=== PATIENT | female | born 1960 | race Caucasian/White ===

== ENCOUNTER 2020-06-16 10:34 | Outpatient (CLI) | payer BC, SELFPAY ==
--- NOTE | 2020-06-16 10:45 | MR_ITS ---
WS: [id number] MRA HEAD TECHNIQUE: Axial 3-D TOF images obtained with axial images and axial, sagittal, and coronal 2-D refor matted images. CLINICAL INFORMATION: HEADACHE;UNSPEC VISUAL DISTURBANCE COMPARISON: None. FINDINGS: Basilar artery is patent. Normal vascularity to the STRATIGRAPHER territory bilaterally. Both ICAs are patent a t the skull base. Normal vascularity to the NIKOLAS and MCA territories bilaterally. No evidence of high- grade proximal stenosis or aneurysm. MR/MR angio head wo con [id number] IMPRESSION: Normal intracranial MRA.
--- NOTE | 2020-06-16 10:45 | MR_ITS ---
WS: [id number] MRI HEAD WITHOUT CONTRAST TECHNIQUE: Sagittal T1, T2 axial, T2 axial FLAIR, axial and coronal T1 images, axial susceptibility w eighted imaging, axial diffusion weighted images, and coronal T2 images were obtained. CLINICAL INFORMATION: HEADACHE;UNSPEC VISUAL DISTURBANCE COMPARISON: None. FINDINGS: No evidence of restricted diffusion to suggest acute ischemia. Ventricular system and basal cisterns are patent. Mild periventricular and supratentorial white matter changes consistent with small vessel disease in a patient this age. No significant parenchymal volume loss. Normal posterior fossa. Rowan l vascular flow voids at the skull base. No extra-axial fluid collections. No evidence of mass or mass effect. Mild mucosal thickening in the ethmoid air cells and mastoid air cells. No hemosiderin on the susceptibly weighted images. Normal optic chiasm and pituitary infundibulum. Te mporal lobes and hippocampal formations are normal in appearance. Incidental slightly low-lying cereb ellar tonsils. MR/MR head wo con* [id number] IMPRESSION: 1. No evidence of restricted diffusion to suggest acute ischemia. 2. Mild small vessel changes. No significant parenchymal volume loss. 3. Mild mucosal thickening left greater than right mastoid air cells. 4. Temporal lobes and hippocampal formations are normal in appearance. No asym metric hippocampal atrophy. 5. Slightly low-lying cerebellar tonsils.
== END 2020-06-16 10:35 | disposition home or self-care (01) ==
LOC: RADSHAW 10:43
PROVIDERS: PCP Family Medicine; Visit Provider Family Medicine
DX: R51.9 Headache, unspecified (principal); H53.9 Unspecified visual disturbance
CPT/HCPCS: 70544; 70551

== ENCOUNTER 2020-06-25 10:03 | Outpatient (CLI) | payer BC, SELFPAY ==
--- NOTE | 2020-06-25 10:10 | XR_ITS ---
WS: [id number] FOOT RIGHT TECHNIQUE: 3 views of the right foot CLINICAL INFORMATION: PAIN IN RIGHT FOOT COMPARISON: None. FINDINGS: No evidence of acute fracture or dislocation. Normal tarsal metatarsal alignment. Normal calcaneus. N ormal visualized talar dome. No acute findings. XR/XR foot RT min 3V* [id number] IMPRESSION: Normal right foot.
== END 2020-06-25 10:04 | disposition home or self-care (01) ==
LOC: RADWPI 10:06
PROVIDERS: Family Provider Family Medicine; PCP Family Medicine; Visit Provider Nurse Practitioner
DX: M79.671 Pain in right foot (principal)
CPT/HCPCS: 73630

== ENCOUNTER → 2022-06-07 09:30 | Outpatient (BNVA) | payer OTHER, SELFPAY | PROVIDERS: Family Provider Family Medicine; PCP Family Medicine; Visit Provider Family Medicine | DX: Z00.00 Encounter for general adult medical examination without abnormal findings (principal); E78.5 Hyperlipidemia, unspecified | CPT/HCPCS: 80053; 80061; 84443 ==

== ENCOUNTER → 2022-06-24 08:06 | Outpatient (BNVA) | payer OTHER, SELFPAY | PROVIDERS: Family Provider Family Medicine; PCP Family Medicine; Visit Provider Clinical Nurse Specialist Adult Health | DX: Z01.419 Encounter for gynecological examination (general) (routine) without abnormal findings (principal) | CPT/HCPCS: 87624 ==

== ENCOUNTER 2022-07-08 08:35 | Outpatient (CLI) | payer OTHER, SELFPAY ==
--- NOTE | 2022-07-08 | MM_ITS ---
WS: [id number] Exam: [id number] Date/Time of Exam: 07/08/2022 8:51 AM Reason For Exam: screening VIEWS: MLO and CC views both breasts. 3D digital tomosynthesis is also included in this exam. Comparison made with prior exam of 04/16/2010, 01/25/2012, 04/09/2014, 06/08/2015, 06/24/2016, 07/17/2017,. Findings: There was no sign of mass, architectural distortion or suspicious calcification in either breast. Sta ble appearing nodular densities in both breasts.Scattered fibroglandular densities MM/[id number] Impression: BI-RADS: 2-Benign FOLLOW-UP: 1 Year Follow-up This mammogram was also analyzed by the Computer Aided Detection System R2 Imag e Telemarketing Representative.
--- NOTE | 2022-07-08 08:45 | MM_ITS ---
WS: [id number] Exam: [id number] Date/Time of Exam: 07/08/2022 8:51 AM Reason For Exam: screening VIEWS: MLO and CC views both breasts. 3D digital tomosynthesis is also included in this exam. Comparison made with prior exam of 04/16/2010, 01/25/2012, 04/09/2014, 06/08/2015, 06/24/2016, 07/17/2017,. Findings: There was no sign of mass, architectural distortion or suspicious calcification in either breast. Sta ble appearing nodular densities in both breasts.Scattered fibroglandular densities
== END 2022-07-08 08:36 | disposition home or self-care (01) ==
LOC: RAD 08:36
PROVIDERS: PCP Family Medicine; Visit Provider Family Medicine
DX: Z12.31 Encounter for screening mammogram for malignant neoplasm of breast (principal)
CPT/HCPCS: 77063; 77067

== ENCOUNTER 2022-09-21 05:46 | Day surgery (SDC) | payer OTHER, SELFPAY ==
[2022-09-19 09:53] VITALS: BMI 35.9
[2022-09-21 06:17] VITALS: BP 125/67; PULSE 73; RESP 16; TEMP 36.1; O2SAT 93
[2022-09-21] MEDS: sodium chloride 0.9% 1,000 ML 30 ML IV (06:22)
--- NOTE | 2022-09-21 06:51 | ANES.PREANE2 ---
Pre-Anesthetic Assessment Height/Weight: Height 1.55 m Weight 86.183 kg Temp Pulse Resp BP Pulse Ox O2 Del Method 97 F L 73 16 125/67 93 09/21/22 06:17 09/21/22 06:17 09/21/22 06:17 09/21/22 06:17 09/21/22 06:17 09/21/22 06:17 Preop Diagnosis: screening Operation Date: 09/21/22 07:30 Proposed Procedures p Colonoscopy 06363,Z12.11(Not Applicable) - Jaspal Joy DO Familial anesthetic complications: none Was Beta Chris taken within 24 hours: N/A Was Clonidine taken within 24 hours: N/A Last intake: Intake Last Liquid Date 09/20/22 Last Liquid Time 22:00 Last Solid Date 09/19/22 Last Solid Time 16:00 Social Tobacco and No alcohol 1 pack(s) per day Exam alert, oriented x 3, clear to auscultation bilaterally and regular rate & rhythm Airway Submandibular: within normal limits Cervical ROM: within normal limits Mallampati: Class II Dentition: false Pulmonary None reported CV/HEM None reported None reported Hepatic None reported GI Gastroesophageal Reflux Disease (controlled) and Hiatal Hernia Metabolic Hyperlipidemia and Morbid Obesity [facility] [place] None reported Neuropsych Anxiety Anesthetic Plan ASA status: 2 Anesthesia: MAC Risk of > 500 ml blood loss (7ml/kg in children): No Medications/Allergies Home Medications Medication Instructions Recorded Confirmed Last Taken Type ibuprofen 800 mg tablet 800 mg PO Q8H PRN Pain 06/15/22 09/21/22 09/20/22 History magnesium oxide 400 mg PO DAILY 06/15/22 09/21/22 09/20/22 History alprazolam 0.5 mg tablet 0.5 mg PO TID #90 tabs 06/22/22 09/21/22 09/21/22 Rx escitalopram oxalate 10 mg tablet 10 mg PO DAILY #30 tabs 06/22/22 09/21/22 09/20/22 Rx omeprazole 20 mg capsule,delayed 20 mg PO DAILY #90 caps 06/22/22 09/21/22 09/20/22 Rx release simvastatin 20 mg tablet 20 mg PO DAILY #90 tabs 06/22/22 09/21/22 09/20/22 Rx Allergies Allergy/AdvReac Type Severity Reaction Status Date / Time amoxicillin AdvReac Intermediate vomiting Verified 07/14/22 09:20 Penicillins AdvReac Intermediate hives, Verified 07/14/22 09:20 throat swelling Sulfa (Sulfonamide AdvReac Intermediate anaphylaxis Verified 07/14/22 09:20 Antibiotics) tree nut AdvReac Intermediate throat Verified 07/14/22 09:20 swelling Current Medications Generic Name Dose Route Start Last Admin Trade Name Claritza PRN Reason Stop Dose Admin Sodium Chloride 1,000 mls @ 30 mls/hr 09/21/22 06:15 09/21/22 06:22 Sodium Chloride 0.9% IV 09/22/22 06:14 30 mls/hr .Q24H JP Administration PFSH Anesthesia Medical History (Updated 07/07/22 @ 06:44 by Weston Banegas MD) Foot fracture, left 2018 broke 4 bones in left foot Frequent UTI Generalized anxiety disorder Hyperlipidemia Ocular migraine Ruptured lumbar disc 2011 Surgical History History of arthroscopic surgery of shoulder 2007, both shoulders History of carpal tunnel release of both wrists 1998 Hx of bladder repair surgery 2011, 2011 Family History Mother Cancer breast Family/Other Cancer maternal uncle, colon cancer, age 40 Family/Other Cancer Leukemia, paternal aunt Brother Cancer Lung cancer, smoker/asbestos Social History Smoking and tobacco status: former smoker Quit status (tobacco): has quit using tobacco Former quit date comment: 30-40 pack year history Alcohol intake: never 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
--- NOTE | 2022-09-21 07:55 | PM.HP ---
Providers/Chief Complaint Primary Care Provider: Weston Banegas MD Chief Complaint: screening colonoscopy History of Present Illness Mindy Velez is a 62 year old female who presents for a screening colonoscopy. She had a colonoscopy 15 years ago and no polyps were seen. Her uncle had colon cancer. She denies any abdominal pain, nausea, emesis, diarrhea, constipation, hematochezia and/or melena. Medications/Allergies Home Medications Medication Instructions Recorded Confirmed Last Taken Type ibuprofen 800 mg tablet 800 mg PO Q8H PRN Pain 06/15/22 09/21/22 09/20/22 History magnesium oxide 400 mg PO DAILY 06/15/22 09/21/22 09/20/22 History alprazolam 0.5 mg tablet 0.5 mg PO TID #90 tabs 06/22/22 09/21/22 09/21/22 Rx escitalopram oxalate 10 mg tablet 10 mg PO DAILY #30 tabs 06/22/22 09/21/22 09/20/22 Rx omeprazole 20 mg capsule,delayed 20 mg PO DAILY #90 caps 06/22/22 09/21/22 09/20/22 Rx release simvastatin 20 mg tablet 20 mg PO DAILY #90 tabs 06/22/22 09/21/22 09/20/22 Rx Allergies Allergy/AdvReac Type Severity Reaction Status Date / Time amoxicillin AdvReac Intermediate vomiting Verified 07/14/22 09:20 Penicillins AdvReac Intermediate hives, Verified 07/14/22 09:20 throat swelling Sulfa (Sulfonamide AdvReac Intermediate anaphylaxis Verified 07/14/22 09:20 Antibiotics) tree nut AdvReac Intermediate throat Verified 07/14/22 09:20 swelling PFSH Acute PFSH: Medical History (Updated 09/21/22 @ 07:56 by Jaspal Joy DO) Foot fracture, left 2018 broke 4 bones in left foot Frequent UTI Generalized anxiety disorder Hyperlipidemia Ocular migraine Ruptured lumbar disc 2011 Surgical History History of arthroscopic surgery of shoulder 2007, both shoulders History of carpal tunnel release of both wrists 1998 Hx of bladder repair surgery 2011, 2011 Family History Mother Cancer breast Family/Other Cancer maternal uncle, colon cancer, age 40 Family/Other Cancer Leukemia, paternal aunt Brother Cancer Lung cancer, smoker/asbestos Social History Smoking and tobacco status: former smoker Quit status (tobacco): has quit using tobacco Former quit date comment: 30-40 pack year history Alcohol intake: never 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 The patient is understanding of the risks and wishes to proceed. Attestations Medical Necessity Statement*: Home Coding Level of Care Code Acute Programming Coordinator for Chg Fwd Diagnoses Colon cancer screening Z12.11
[2022-09-21 08:16] VITALS: BP 110/63; PULSE 69; RESP 16; TEMP 36.4; O2SAT 97
--- NOTE | 2022-09-21 08:20 | ANE.PACU2 ---
Inpatient post-anesthesia follow up: Airway intact: Yes Vital signs: Temperature 97.5 F Pulse Rate 69 Respiratory Rate 16 Blood Pressure 110/63 Pulse Oximetry 97 Oxygen Delivery Me thod Room Air Oxygen Flow Rate Fraction of Inspir ed Oxygen Hydration adequate: Yes Nausea and vomiting: No Pain level: 1 Mental status: Baseline
[2022-09-21 08:30] VITALS: BP 116/85; PULSE 70; RESP 16; O2SAT 96
--- NOTE | 2022-09-21 13:32 | ANE.PACU2 ---
Inpatient post-anesthesia follow up: Airway intact: Yes Vital signs: Temperature 97.5 F Pulse Rate 70 Respiratory Rate 16 Blood Pressure 116/85 Pulse Oximetry 96 Oxygen Delivery Me thod Room Air Oxygen Flow Rate Fraction of Inspir ed Oxygen Hydration adequate: Yes Nausea and vomiting: No Pain level: 1 Mental status: Baseline
== END 2022-09-21 08:43 | disposition home or self-care (01) ==
PROVIDERS: PCP Family Medicine; Visit Provider Surgery
PROC: 0DJD8ZZ Inspection of Lower Intestinal Tract, Via Natural or Artificial Opening Endoscopic (ICD-10-PCS; CPT 45378; principal; 2022-09-21 07:30)
DX: Z12.11 Encounter for screening for malignant neoplasm of colon (principal); E78.5 Hyperlipidemia, unspecified; Z87.891 Personal history of nicotine dependence; D12.5 Benign neoplasm of sigmoid colon; K21.9 Gastro-esophageal reflux disease without esophagitis; K44.9 Diaphragmatic hernia without obstruction or gangrene; E66.01 Morbid (severe) obesity due to excess calories; Z68.35 Body mass index [BMI] 35.0-35.9, adult; F41.9 Anxiety disorder, unspecified
CPT/HCPCS: 45380; 45385; 88305; J2704; J7030

== ENCOUNTER → 2022-12-20 08:33 | Outpatient (BNVA) | payer OTHER, SELFPAY | PROVIDERS: PCP Family Medicine; Visit Provider Family Medicine | DX: Z00.00 Encounter for general adult medical examination without abnormal findings (principal); E78.5 Hyperlipidemia, unspecified; F41.9 Anxiety disorder, unspecified; Z01.419 Encounter for gynecological examination (general) (routine) without abnormal findings | CPT/HCPCS: 80053; 80061; 84443 ==

== ENCOUNTER → 2024-04-04 10:00 | Outpatient (BNVA) | payer MEDICARE, OTHER, SELFPAY | PROVIDERS: PCP Family Medicine; Visit Provider Surgery | DX: L73.2 Hidradenitis suppurativa; R22.30 Localized swelling, mass and lump, unspecified upper limb | CPT/HCPCS: 99204; 99214 ==

== ENCOUNTER → 2024-04-05 07:38 | Outpatient (BNVA) | payer MEDICARE, OTHER, SELFPAY | PROVIDERS: PCP Family Medicine; Visit Provider Surgery | DX: L73.2 Hidradenitis suppurativa; R22.2 Localized swelling, mass and lump, trunk | CPT/HCPCS: 99214 ==

== ENCOUNTER → 2024-04-16 14:25 | Outpatient (BNVA) | payer MEDICARE, OTHER, SELFPAY | PROVIDERS: PCP Family Medicine; Visit Provider Clinical Nurse Specialist Adult Health | DX: R30.0 Dysuria (principal); R31.9 Hematuria, unspecified | CPT/HCPCS: 81000; 87086 ==

== ENCOUNTER 2024-04-23 06:44 | Day surgery (SDC) | payer MEDICARE, OTHER, SELFPAY ==
[2024-04-23] VITALS (15 sets, daily range): BP systolic 112–168; BP diastolic 68–96; PULSE 68–91; RESP 12–27; TEMP 36.1–36.4; O2SAT 92–97; BMI 37.4
--- NOTE | 2024-04-23 07:08 | W.PM.OPSUD ---
Surgery/Procedure H&P Update DATE OF PROCEDURE: April 23, 2024 DATE H&P PERFORMED: 04/04/24 H&P UPDATE INFORMATION: I have reviewed H&P completed within last 30 days, I have examined patient prior to procedure and No changes to prior documentation PLANNED PROCEDURE: Operation Date: 04/23/24 08:20 Proposed Procedures p excision of subcutaneous mass of anterior chest 22057, 09246(Not Applicable) - Jaspal Joy DO s Excision Of Pelvic/Groin Mass/Lesion/Cys Excision of Hidradenitis Suppurativa Bilateral Groins(Bilateral) - Jaspal Joy DO
[2024-04-23] MEDS: sodium chloride 0.9% 1,000 ML 30 ML IV (07:11)
[2024-04-23] MEDS: midazolam 1 mg/mL INJ 2 mL 2 MG IVP (07:16)
--- NOTE | 2024-04-23 07:17 | ANES.PREANE2 ---
Pre-Anesthetic Assessment Height/Weight: Height 1.55 m Weight 89.811 kg Temp Pulse Resp BP Pulse Ox O2 Del Method 97.5 F L 74 16 143/68 95 Room Air 04/23/24 06:59 04/23/24 06:59 04/23/24 06:59 04/23/24 06:59 04/23/24 06:59 04/23/24 07:01 Operation Date: 04/23/24 08:20 Proposed Procedures p excision of subcutaneous mass of anterior chest 26576, 94301(Not Applicable) - DO carolyn Petit Excision Of Pelvic/Groin Mass/Lesion/Cys Excision of Hidradenitis Suppurativa Bilateral Groins(Bilateral) - Jaspal Joy DO Familial anesthetic complications: None Was Beta Chris taken within 24 hours: N/A Was Clonidine taken within 24 hours: N/A Last intake: Intake Last Liquid Date 04/22/24 Last Liquid Time 21:00 Last Solid Date 04/22/24 Last Solid Time 15:00 Social Tobacco and No alcohol Exam alert, oriented x 3, clear to auscultation bilaterally and regular rate & rhythm Airway Mallampati: Class II Dentition: other (no teeth) Pulmonary Chronic Obstructive Pulmonary Disease GI Gastroesophageal Reflux Disease Anesthetic Plan ASA status: 3 Anesthesia: General Risk of > 500 ml blood loss (7ml/kg in children): No Medications/Allergies Home Medications Medication Instructions Recorded Confirmed Last Taken Type ibuprofen 800 mg tablet 800 mg PO Q8H PRN Pain 06/15/22 04/22/24 04/15/24 History prenat.vits,westley,iif-eghq-iajme 1 tab PO DAILY 10/05/22 04/22/24 04/22/24 History alprazolam 0.5 mg tablet 0.5 mg PO TID #90 tabs 12/20/23 04/23/24 04/23/24 Rx albuterol sulfate 90 mcg/actuation 2 puff inhalation Q6H PRN 12/26/23 04/22/24 Unknown Rx aerosol inhaler (Ventolin HFA) shortness of breath or wheezing #8.5 grams omeprazole 20 mg capsule,delayed 20 mg PO DAILY #90 caps 12/26/23 04/22/24 04/22/24 Rx release simvastatin 20 mg tablet 20 mg PO DAILY #90 tabs 12/26/23 04/23/24 04/22/24 Rx amoxicillin 875 mg-potassium 1 tab PO BID 3 weeks #42 tabs 04/04/24 04/22/24 04/22/24 Rx clavulanate 125 mg tablet epinephrine 0.1 mg/0.1 mL 0.1 ml IM ONCE #2 ea 04/04/24 04/22/24 Unknown Rx injection, auto-injector fluconazole 100 mg tablet 100 mg PO Q72H #5 tabs 04/16/24 04/22/24 04/22/24 Rx (Diflucan) nystatin 100,000 unit/gram topical 1 applic topical BID #30 grams 04/16/24 04/22/24 04/22/24 Rx powder magnesium 200 mg tablet 400 mg PO DAILY 04/23/24 04/23/24 04/22/24 History Allergies Allergy/AdvReac Type Severity Reaction Status Date / Time latex Allergy ALGY-Bliste Verified 04/23/24 06:52 r Penicillins AdvReac Intermediate hives, Verified 04/05/24 07:46 throat swelling Sulfa (Sulfonamide AdvReac Intermediate anaphylaxis Verified 04/23/24 06:52 Antibiotics) tree nut AdvReac Intermediate throat Verified 04/23/24 06:52 swelling Current Medications Generic Name Dose Route Start Last Admin Trade Name Freq PRN Reason Stop Dose Admin Sodium Chloride 1,000 mls @ 30 mls/hr 04/23/24 07:00 04/23/24 07:11 Sodium Chloride 0.9% IV 04/24/24 06:59 30 mls/hr .Q24H JP Administration PFSH Anesthesia Medical History Smoker Foot fracture, left 2018 broke 4 bones in left foot Ruptured lumbar disc 2011 Ocular migraine Frequent UTI Generalized anxiety disorder Hyperlipidemia Surgical History Hx of bladder repair surgery 2011, 2011 History of arthroscopic surgery of shoulder 2007, both shoulders History of carpal tunnel release of both wrists 1998 Family History Mother Cancer breast Family/Other Cancer maternal uncle, colon cancer, age 40 Family/Other Cancer Leukemia, paternal aunt Brother Cancer Lung cancer, smoker/asbestos Social History Smoking and tobacco/nicotine status: current every day tobacco/nicotine user Quit status (tobacco/nicotine): has quit using Former quit date comment: 30-40 pack year history Alcohol intake: never Substance/Drug Use: never 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
[2024-04-23] MEDS: ceFAZolin 2,000 mg SDV 2000 MG IVP (07:28)
[2024-04-23] MEDS: lidocaine-epi 1% 20 mL INJ INJECTION ×2 (08:01→08:15)
--- NOTE | 2024-04-23 09:15 | PM.OP ---
Operative Report Date of procedure: April 23, 2024 Pre-op diagnosis: Cutaneous mass of the chest Hidradenitis suppurativa bilateral groins Procedure done: Excision of subcutaneous mass of chest Excision of skin and subcutaneous tissue right groin Excision of skin and subcutaneous tissue left groin Specimens removed/disposition: Excision of subcutaneous mass of chest Excision of skin and subcutaneous tissue right groin Excision of skin and subcutaneous tissue left groin Surgeon: Jaspal Joy DO Anesthesia: General and Local Estimated blood loss (mL): 5 Complications: None apparent Brief History: This is a very pleasant 64-year-old female who came to my office with enlarging subcutaneous mass of her anterior chest. This has opened and drained at least a couple times in her life. She also suffers from hidradenitis suppurativa in her bilateral groins She desired excision for many many years. She often will get acute infections in both groins. She did desired excision of all 3 areas. She was treated with antibiotics prior to surgery. The risks and benefits of the procedures were explained and documented. Procedure: Placed on the OR table in the supine position. The anterior chest and bilateral groins were inspected prepped and draped in usual sterile fashion. General tracheal ovation was achieved of department anesthesia. A time was performed. All Were in Agreement. We Began on the Anterior Chest Lesion. There was a circumscribed subcutaneous mass in the middle of her anterior chest. Just adjacent to this was a skin nevus that was flesh-colored and raised. I included this in the excision. 1% lidocaine with epinephrine was used to anesthetize the area. A 15 blade scalpel was used to make an elliptical excision over both the subcutaneous mass and the nevus. An excision measuring 4 centimeters by 2.3 cm was performed. Dissection was carried down 2.3 cm with electrocautery. The cystic appearing subcutaneous mass was excised en bloc. Hemostasis was controlled with electrocautery. Dermis was then approximated with 3-0 Vicryl in an interrupted fashion. Skin was closed with 4-0 Monocryl in a running subcuticular fashion. Dermabond was applied. I then took my attention to the bilateral groins. Starting in the left groin, 1% lidocaine with epinephrine was used to localize the area. Patient had great response to antibiotics did not have any acute infection in either groin. A 10 blade scalpel was used to make an elliptical excision measuring 20 cm x 4.5 cm. Electrocautery was then used to cut through the dermis and excise through the subcutaneous tissue down to a depth of 1 cm. Electrocautery was used for hemostasis. Specimen was passed off. Dermis was approximated with 3-0 Vicryl in interrupted fashion. Skin was closed with simple interrupted 3-0 and 4-0 nylon. Attention was then brought to to the right groin, 1% lidocaine with epinephrine was used to localize the area. Patient had great response to antibiotics did not have any acute infection in either groin. A 10 blade scalpel was used to make an elliptical excision measuring 20 cm x 4.5 cm. Electrocautery was then used to cut through the dermis and excise through the subcutaneous tissue down to a depth of 1 cm. Electrocautery was used for hemostasis. Specimen was passed off. Dermis was approximated with 3-0 Vicryl in interrupted fashion. Skin was closed with simple interrupted 3-0 and 4-0 nylon. Sterile bandages were applied to the groins. Patient tolerated procedure well and was wheeled to the postop anesthesia care unit in good condition.
[2024-04-23] MEDS: fentaNYL 50 mcg/mL INJ 2mL IVP ×2 (09:45→10:01)
[2024-04-23] MEDS: oxyCODONE-APAP 10-325 mg Tablet 1 TAB PO (10:46)
--- NOTE | 2024-04-23 11:05 | ANE.PACU2 ---
Inpatient post-anesthesia follow up: Airway intact: Yes Vital signs: Temperature 97.5 F Pulse Rate 72 Respiratory Rate 17 Blood Pressure 112/72 Pulse Oximetry 95 Oxygen Delivery Me thod Room Air Oxygen Flow Rate 8 Fraction of Inspir ed Oxygen Hydration adequate: Yes Nausea and vomiting: No Pain level: 1 Mental status: Baseline
== END 2024-04-23 11:04 | disposition home or self-care (01) ==
PROVIDERS: PCP Family Medicine; Visit Provider Surgery
PROC: (CPT 11404; principal; 2024-04-23 08:10)
PROC: (CPT 11404; 2024-04-23 08:10)
DX: L72.0 Epidermal cyst (principal); L73.2 Hidradenitis suppurativa; J44.9 Chronic obstructive pulmonary disease, unspecified; K21.9 Gastro-esophageal reflux disease without esophagitis; F17.200 Nicotine dependence, unspecified, uncomplicated; E78.5 Hyperlipidemia, unspecified
CPT/HCPCS: 11404; 11462; 12032; 88307; J0690; J1100; J2250; J2405; J2704; J3010; J3490; J7030

== ENCOUNTER → 2024-05-06 09:01 | Outpatient (BNVA) | payer MEDICARE, OTHER, SELFPAY | PROVIDERS: PCP Family Medicine; Visit Provider Surgery | DX: L73.2 Hidradenitis suppurativa (principal) | CPT/HCPCS: 99214 ==

== ENCOUNTER → 2024-05-10 08:25 | Outpatient (BNVA) | payer MEDICARE, OTHER, SELFPAY | PROVIDERS: PCP Family Medicine; Visit Provider Surgery | DX: L73.2 Hidradenitis suppurativa (principal) | CPT/HCPCS: 99214 ==

== ENCOUNTER → 2024-06-27 08:10 | Outpatient (BNVA) | payer MEDICARE, OTHER, SELFPAY | PROVIDERS: PCP Family Medicine; Visit Provider Family Medicine | DX: I50.20 Unspecified systolic (congestive) heart failure (principal); F41.9 Anxiety disorder, unspecified; E78.5 Hyperlipidemia, unspecified; R06.00 Dyspnea, unspecified; L73.2 Hidradenitis suppurativa | CPT/HCPCS: 80053; 80061 ==

== ENCOUNTER 2024-07-20 15:00 | Inpatient (IN) | payer MEDICARE, OTHER, SELFPAY ==
[2024-07-20 15:38] VITALS: BP 136/81; PULSE 72; RESP 18; TEMP 36.4; O2SAT 97
[2024-07-20 15:53] VITALS: BP 110/86; PULSE 85; O2SAT 96
[2024-07-20 16:00] LABS: Bilirubin Urine Negative (Negative); Blood Urine Trace (Negative); Glucose Urine UA Negative (Normal); Ketones Urine Negative (Negative); Leukocyte Esterase Urine Negative (Negative); Nitrate Urine Negative (Negative); Protein Urine Negative (Negative); Specific Gravity, Urine 1.008 (1.005-1.030); Urine Appearance Clear (CLEAR); Urine Color Yellow (Yellow); Urobilinogen Urine 0.2 mg/dL (Negative); pH Urine 5.5 (5-7)
[2024-07-20 16:05] LABS: Bacteria Urine None Seen /hpf; Hyaline Casts Urine 0-4 /lpf; RBC Urine 0-2 /hpf (0-2); Squamous Epithelial Cell Urine 0-5 /hpf (0-5); WBC Urine 0-5 /hpf (0-5)
[2024-07-20 16:08] LABS: Basophils # 0.1 10^3/uL (0.0-0.1); Basophils % 0.4 %; Eosinophils # 0.2 10^3/uL (0.0-0.8); Eosinophils % 1.2 %; Hematocrit 43.1 % (36-47); Lymphocytes # 2.8 10^3/uL (0.8-4.8); Mean Corpuscular HGB Conc 32.5 g/dL (30-55); Mean Corpuscular Hemoglobin 30.2 pg (27-33); Mean Corpuscular Volume 93.1 fl (85-98); Mean Platelet Volume 10.1 fL (7.4-10.4); Monocytes % 7.8 %; Neutrophils # 8.84 10^3/uL (1.8-7.7); Neutrophils % 68.3 %; Nucleated Red Blood Cells % 0 %; Platelet Count 334 10^3/cmm (157-399); Red Blood Count 4.63 10^6/uL (3.85-5.65); Red Cell Distribution Width 13.2 % (12.1-15.1); White Blood Count 12.93 10^3/uL (3.29-11.43)
[2024-07-20 16:27] LABS: Alanine Aminotransferase 17 U/L (0-33); Albumin Level 4.3 g/dL (3.5-5.2); Alkaline Phosphatase 105 U/L (35-105); Anion Gap 16.2 (5-19); Aspartate Amino Transferase 15 U/L (0-32); Blood Urea Nitrogen 13 mg/dL (8-23); Calcium 9.3 mg/dL (8.5-10.5); Carbon Dioxide 25 mmol/L (22-29); Chloride 101 mmol/L (98-107); Creatinine Clr Calc Pharmacy 70.2977; Globulin 2.2 g/dL (1.3-4.6); Glucose 112 mg/dL (65-115); Lipase 15 U/L (13-60); Osmolality Calculated 287 mOsm/kg (285-295); Potassium 4.2 mmol/L (3.5-5.1); Sodium 138 mmol/L (136-145); Total Bilirubin 0.2 mg/dL (0.15-1.2); Total Protein 6.5 g/dL (6.6-8.7)
[2024-07-20 16:28] LABS: Lactic Sepsis W/Reflex 1.3 mmol/L (0.5-2.2)
--- NOTE | 2024-07-20 16:29 | CTR_ITS ---
PROCEDURE INFORMATION: Exam: CT Abdomen And Pelvis With Contrast Exam date and time: 07/20/2024 5:18 PM Age: 64 years old Clinical indication: Abdominal pain; Localized; Right lower quadrant (rlq); Additional info: Rlq abdominal pain TECHNIQUE: Imaging protocol: Computed tomography of the abdomen and pelvis with contrast. Radiation optimization: All CT scans at this facility use at least one of these dose optimization techniques: automated exposure control; mA and/or kV adjustment per patient size (includes targeted exams where dose is matched to clinical indication); or iterative reconstruction. Contrast material: OMNI 350; Contrast volume: 100 ml; Contrast route: INTRAVENOUS (IV); COMPARISON: MR lumbar spine wo con* [id number] 05/10/2018 7:14 AM RADIATION DOSE METRICS: Total DLP (mGy-cm): 785.23 FINDINGS: Lungs: Lung bases are clear. Liver: Liver is enlarged measuring 17 cm. Diffuse decrease in hepatic parenchymal density, consistent with fatty infiltration. The liver is otherwise unremarkable. Gallbladder and biliary ducts: Gallbladder is normal. There is no evidence of biliary ductal dilation. Pancreas: The pancreas is normal. Spleen: The spleen is normal. Adrenal glands: Adrenal glands are normal. Kidneys and ureters: The kidneys are normal. No hydroureter. Stomach and bowel: No bowel obstruction or significant bowel wall thickening. Mild constipation. The stomach is normal. The duodenum is unremarkable. Appendix: Mild diffuse distension of the appendix, up to 1 cm, with surrounding inflammation. Intraperitoneal space: There is no evidence of free intraperitoneal or pelvic fluid. No intraperitoneal fluid collections. There is no free intraperitoneal air. Vasculature: There are numerous benign phleboliths in the pelvis. Portal venous system is patent. Mild atherosclerotic calcification of the arterial vasculature. No aortic aneurysms. Lymph nodes: There is no evidence of lymphadenopathy. Urinary bladder: Bladder is decompressed and difficult to evaluate. Reproductive: Reproductive organs are unremarkable as visualized. Bones/joints: Mild multilevel degenerative changes of the spine. No acute fracture, dislocation, or aggressive osseous lesion. Soft tissues: Fat containing umbilical hernia. Right buttock calcified granulomas are benign. No acute body wall soft tissue findings. CT/CT abdomen pelvis w con* [id number] IMPRESSION: Mild acute uncomplicated appendicitis.
--- NOTE | 2024-07-20 16:30 | ED_ITS ---
HPI - Abdominal Pain 2 General: Chief Complaint: Abdominal Pain Stated Complaint: abd pain, back pain Time Seen by Provider: 07/20/24 15:45 History of Present Illness: 64-year-old female with a history of brenda dder sling, no recent inguinal lymph node biopsy tobacco dependence, migraines, anxiety and hyperlipidemia who presents to the emergency room with low back pain and right lower quadrant abdominal pain. This been going on for couple of days she said. No nausea or vomiting. No fevers. She says she has had chills regularly and has felt cold. No chest pain. No shortness of breath. No altered mental status. No focal motor deficits. Related Data Home Medications Medication Instructions Recorded Confirmed ibuprofen 800 mg tablet 800 mg PO Q8H PRN Pain 06/15/22 07/20/24 magnesium 200 mg tablet 400 mg PO DAILY 04/23/24 07/20/24 vits,calcium 21-iron fum 1 tab PO DAILY 07/20/24 07/20/24 14 mg iron-folic acid 400 mcg tablet ( Complete) Previous Rx's Medication Instructions Recorded albuterol sulfate 90 mcg/actuation 2 puff inhalation Q6H PRN 12/26/23 aerosol inhaler (Ventolin HFA) shortness of breath or wheezing #8.5 grams epinephrine 0.1 mg/0.1 mL 0.1 ml IM ONCE #2 ea 04/04/24 injection, auto-injector alprazolam 0.5 mg tablet 0.5 mg PO TID #90 tabs 06/24/24 omeprazole 20 mg capsule,delayed 20 mg PO DAILY #90 caps 06/26/24 release simvastatin 20 mg tablet 20 mg PO DAILY #90 tabs 06/26/24 Allergies Allergy/AdvReac Type Severity Reaction Status Date / Time latex Allergy ALGY-Bliste Verified 07/20/24 15:41 r Penicillins AdvReac Intermediate hives, Verified 07/20/24 15:41 throat swelling Sulfa (Sulfonamide AdvReac Intermediate anaphylaxis Verified 07/20/24 15:41 Antibiotics) tree nut AdvReac Intermediate throat Verified 07/20/24 15:41 swelling Review of Systems 2 Narrative: Constitutional symptoms: Negative except as documented in HPI. Skin symptoms: Negative except as documented in HPI. Eye symptoms: Negative except as documented in HPI. ENMT symptoms: Negative except as documented in HPI. Respiratory symptoms: Negative except as documented in HPI. Cardiovascular symptoms: Negative except as documented in HPI. Gastrointestinal symptoms: Negative except as documented in HPI. Genitourinary symptoms: Negative except as documented in HPI. Musculoskeletal symptoms: Negative except as documented in HPI. Neurologic symptoms: Negative except as documented in HPI. Psychiatric symptoms: Negative except as documented in HPI. Endocrine symptoms: Negative except as documented in HPI. PFSH ED 2 PFSH: Medical History Smoker Foot fracture, left 2018 broke 4 bones in left foot Ruptured lumbar disc 2011 Ocular migraine Frequent UTI Generalized anxiety disorder Hyperlipidemia Surgical History Hx of excision of mass Dr Joy- 04/23/24 Excision of subcutaneous mass of chest Excision of skin and subcutaneous tissue right groin Excision of skin and subcutaneous tissue left groin Hx of bladder repair surgery 2011, 2011 History of arthroscopic surgery of shoulder 2008, both shoulders History of carpal tunnel release of both wrists 1998 Family History Mother Cancer breast Family/Other Cancer maternal uncle, colon cancer, age 40 Family/Other Cancer Leukemia, paternal aunt Brother Cancer Lung cancer, smoker/asbestos Social History Smoking and tobacco/nicotine status: current every day tobacco/nicotine user Quit status (tobacco/nicotine): has quit using Former quit date comment: 30-40 pack year history Alcohol intake: never Substance/Drug Use: never 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 Skin: Warm, dry. Head: Normocephalic, atraumatic. Neck: Supple, trachea midline. Eye: Extraocular movements are intact. Ears, nose, mouth and throat: mucosa moist. Cardiovascular: Regular, Normal peripheral perfusion. Respiratory: Lungs are clear to auscultation, respirations are non-labored, breath sounds are equal, Symmetrical chest wall expansion. Gastrointestinal: Soft, bilateral low back pain and right lower quadrant abdominal pain, Non distended Musculoskeletal: Normal ROM, no deformity. Neurological: Alert and oriented, No focal neurological deficit observed. Psychiatric: Cooperative, appropriate mood & affect. Course 2 Vital Signs: Vital signs: Vital Signs Temperature 97.5 F L 07/20/24 15:38 Pulse Rate 74 07/20/24 18:20 Respiratory Rate 18 07/20/24 15:38 Blood Pressure 132/81 07/20/24 18:20 Pulse Oximetry 94 07/20/24 18:20 Oxygen Delivery Me thod Room Air 07/20/24 18:20 MDM - Abdominal Pain Medical Decision Making Medical decision making: Differential diagnosis for this patient with right lower quadrant abdominal pain including but not limited to and based on the above HPI, review of systems and physical exam: Ureterolithiasis. Urinary tract infection. Appendicitis. colitis. small bowel obstruction. Crohn's flare. Pancreatitis. Cholelithiasis or cholecystitis. Hepatitis. Diverticulitis. Constipation. ovarian cyst. ovarian torsion Workup: Orders were placed to evaluate differential diagnosis based on the above differential, HPI and exam: Lab Review: Laboratory results were reviewed and interpreted by myself the emergency room physician. Mild leukocytosis with a white count of 12. No anemia. Hemoglobin 14. BUN and creatinine are normal at 13 and 0.7. Urinalysis is negative for infection or blood. CT of the abdomen pelvis shows a mild acute uncomplicated appendicitis. This was reviewed and interpreted by myself the emergency room physician. I also reviewed the radiology report. I reviewed the patient's medical record Reexamination: Patient remained stable. No increased work of breathing. No altered mental status. No focal motor deficits. Still with some right lower quadrant abdominal pain. Not severe. Patient is asking to go outside to smoke Consultation: I spoke with Dr. Justice who is on-call for psychiatry who is admitting the patient. Assessment and plan: Acute appendicitis ?Patient has a penicillin allergy so she has been given Cipro and Flagyl. -I discussed the patient with the hospitalist on-call who is admitting the patient. - Discussed findings and plan with patient. Answered any questions. - All laboratory values were reviewed and interpreted personally by myself, the ER physician - All imaging was reviewed and interpreted personally by myself, the ER physician. - Evaluation and treatment of this problem were appropriate in the emergency setting Lab Data 07/20/24 15:59 07/20/24 15:59 Labs/Radiology: Radiology Impressions Abdomen/Pelvis CT 07/20/24 16:29 IMPRESSION: Mild acute uncomplicated appendicitis. Laboratory Results WBC 12.93 10^3/uL (3.29-11.43) H 07/20/24 15:59 RBC 4.63 10^6/uL (3.85-5.65) 07/20/24 15:59 Hgb 14.00 g/dL (11.27-16.99) 07/20/24 15:59 Hct 43.1 % (36-47) 07/20/24 15:59 MCV 93.1 fl (85-98) 07/20/24 15:59 MCH 30.2 pg (27-33) 07/20/24 15:59 MCHC 32.5 g/dL (30-55) 07/20/24 15:59 RDW 13.2 % (12.1-15.1) 07/20/24 15:59 Plt Count 334 10^3/cmm (157-399) 07/20/24 15:59 MPV 10.1 fL (7.4-10.4) 07/20/24 15:59 Neut % (Auto) 68.3 % 07/20/24 15:59 Lymph % (Auto) 22.0 % 07/20/24 15:59 [place] % (Auto) 7.8 % 07/20/24 15:59 Eos % (Auto) 1.2 % 07/20/24 15:59 Baso % (Auto) 0.4 % 07/20/24 15:59 Neut # (Auto) 8.84 10^3/uL (1.8-7.7) H 07/20/24 15:59 Lymph # (Auto) 2.8 10^3/uL (0.8-4.8) 07/20/24 15:59 [place] # (Auto) 1.0 10^3/uL (0.2-0.9) H 07/20/24 15:59 Eos # (Auto) 0.2 10^3/uL (0.0-0.8) 07/20/24 15:59 Baso # (Auto) 0.1 10^3/uL (0.0-0.1) 07/20/24 15:59 Nucleated RBC % (auto) 0 % 07/20/24 15:59 Nucleated RBCs # 0.0 /100WBC 07/20/24 15:59 Sodium 138 mmol/L (136-145) 07/20/24 15:59 Potassium 4.2 mmol/L (3.5-5.1) 07/20/24 15:59 Chloride 101 mmol/L (98-107) 07/20/24 15:59 Carbon Dioxide 25 mmol/L (22-29) 07/20/24 15:59 Anion Gap 16.2 (5-19) 07/20/24 15:59 BUN 13 mg/dL (8-23) 07/20/24 15:59 Creatinine 0.7 mg/dL (0.5-0.9) 07/20/24 15:59 GFR Calculation 84.0 mL/min (90-130) L 07/20/24 15:59 Glucose 112 mg/dL (65-115) 07/20/24 15:59 Calculated Osmolality 287 mOsm/kg (285-295) 07/20/24 15:59 Lactic Acid 1.3 mmol/L (0.5-2.2) 07/20/24 15:59 Calcium 9.3 mg/dL (8.5-10.5) 07/20/24 15:59 Total Bilirubin 0.2 mg/dL (0.15-1.2) 07/20/24 15:59 AST 15 U/L (0-32) 07/20/24 15:59 ALT 17 U/L (0-33) 07/20/24 15:59 Alkaline Phosphatase 105 U/L (35-105) 07/20/24 15:59 Total Protein 6.5 g/dL (6.6-8.7) L 07/20/24 15:59 Albumin 4.3 g/dL (3.5-5.2) 07/20/24 15:59 Globulin 2.2 g/dL (1.3-4.6) 07/20/24 15:59 Lipase 15 U/L (13-60) 07/20/24 15:59 Urine Color Yellow (Yellow) 07/20/24 15:55 Urine Appearance Clear (CLEAR) 07/20/24 15:55 Urine pH 5.5 (5-7) 07/20/24 15:55 Ur Specific [place] 1.008 (1.005-1.030) 07/20/24 15:55 Urine Protein Negative (Negative) 07/20/24 15:55 Urine Glucose (UA) Negative (Normal) 07/20/24 15:55 Urine Ketones Negative (Negative) 07/20/24 15:55 Urine Blood Trace (Negative) A 07/20/24 15:55 Urine Nitrate Negative (Negative) 07/20/24 15:55 Urine Bilirubin Negative (Negative) 07/20/24 15:55 Urine Urobilinogen 0.2 mg/dL (Negative) 07/20/24 15:55 Ur Leukocyte Esterase Negative (Negative) 07/20/24 15:55 Urine RBC 0-2 /hpf (0-2) 07/20/24 15:55 Urine WBC 0-5 /hpf (0-5) 07/20/24 15:55 Ur Squamous Epith Cells 0-5 /hpf (0-5) 07/20/24 15:55 Amorphous Sediment Not Reportable 07/20/24 15:55 Urine Bacteria None seen /hpf (NONE) 07/20/24 15:55 Hyaline Casts 0-4 /lpf H 07/20/24 15:55 All radiology interpretation(s) finalized by discharge Discharge Plan Discharge Patient Disposition: Admitted As Inpatient Clinical Impression: Acute appendicitis Condition: Stable Coding Level of Care Code ED Tutorial Laboratory Supervisor for Randy Mo
[2024-07-20] MEDS: iohexol 350 mg/mL 500 mL Btl (per mL) IV (17:20)
[2024-07-20 18:20] VITALS: BP 132/81; PULSE 74; O2SAT 94
[2024-07-20 20:02] VITALS: BP 145/78; PULSE 85; O2SAT 97
[2024-07-20 20:10] VITALS: BMI 36.5
[2024-07-20 20:53] VITALS: RESP 18; O2SAT 97
[2024-07-20] MEDS: morphine 4 mg/mL SDV 1 mL IVP (20:53)
[2024-07-20] MEDS: sodium chloride 0.9% 1,000 ML 75 ML IV (20:53)
[2024-07-20] MEDS: ciprofloxacin 400 MG/200 ML PREMIX 200 MG IV (21:21)
[2024-07-21] VITALS (12 sets, daily range): BP systolic 100–139; BP diastolic 56–72; PULSE 56–81; RESP 15–18; TEMP 36.4–36.7; O2SAT 93–100
[2024-07-21] MEDS: metroNIDAZOLE IV 500 MG/100 ML PREMIX 100 MG IV ×2 (05:37→13:29)
[2024-07-21] MEDS: ciprofloxacin 400 MG/200 ML PREMIX 200 MG IV (06:38)
--- NOTE | 2024-07-21 10:00 | P.ANESASSM_ITS ---
Pre-Anesthetic Assessment Height/Weight: Height 1.55 m Weight 87.815 kg Temp Pulse Resp BP Pulse Ox O2 Del Method 97.5 F L 59 L 18 117/60 94 Room Air 07/21/24 08:51 07/21/24 08:51 07/21/24 08:51 07/21/24 08:51 07/21/24 08:51 07/21/24 08:51 Operation Date: 07/21/24 09:35 Proposed Procedures p Laparoscopic Appendectomy(Bilateral) - Faisal Justice MD Familial anesthetic complications: none Was Beta Chris taken within 24 hours: N/A Was Clonidine taken within 24 hours: N/A Last intake: Intake Last Liquid Date 07/20/24 Last Liquid Time 22:00 Last Solid Date 07/20/24 Last Solid Time 19:00 Social No alcohol and No tobacco Exam alert, oriented x 3, clear to auscultation bilaterally and regular rate & rhythm Airway Mallampati: Class II Dentition: other (none) GI Gastroesophageal Reflux Disease Metabolic Hyperlipidemia Anesthetic Plan ASA status: 2 Anesthesia: General Risk of > 500 ml blood loss (7ml/kg in children): No Medications/Allergies Home Medications Medication Instructions Recorded Confirmed Last Taken Type ibuprofen 800 mg tablet 800 mg PO Q8H PRN Pain 06/15/22 07/20/24 07/19/24 History albuterol sulfate 90 mcg/actuation 2 puff inhalation Q6H PRN 12/26/23 07/20/24 Unknown Rx aerosol inhaler (Ventolin HFA) shortness of breath or wheezing #8.5 grams epinephrine 0.1 mg/0.1 mL 0.1 ml IM ONCE #2 ea 04/04/24 07/20/24 Unknown Rx injection, auto-injector magnesium 200 mg tablet 400 mg PO DAILY 04/23/24 07/20/24 07/19/24 History alprazolam 0.5 mg tablet 0.5 mg PO TID #90 tabs 06/24/24 07/20/24 07/19/24 Rx omeprazole 20 mg capsule,delayed 20 mg PO DAILY #90 caps 06/26/24 07/20/24 07/19/24 Rx release simvastatin 20 mg tablet 20 mg PO DAILY #90 tabs 06/26/24 07/20/24 07/19/24 Rx vits,calcium 21-iron fum 1 tab PO DAILY 07/20/24 07/20/24 07/19/24 History 14 mg iron-folic acid 400 mcg tablet ( Complete) Allergies Allergy/AdvReac Type Severity Reaction Status Date / Time latex Allergy ALGY-Bliste Verified 07/20/24 15:41 r Penicillins AdvReac Intermediate hives, Verified 07/20/24 15:41 throat swelling Sulfa (Sulfonamide AdvReac Intermediate anaphylaxis Verified 07/20/24 15:41 Antibiotics) tree nut AdvReac Intermediate throat Verified 07/20/24 15:41 swelling Current Medications Generic Name Dose Route Start Last Admin Trade Name Freq PRN Reason Stop Dose Admin Sodium Chloride 1,000 mls @ 75 mls/hr 07/20/24 20:00 07/20/24 20:53 Sodium Chloride 0.9% IV 75 mls/hr .[id number] JP Administration Ciprofloxacin/Dextrose 400 mg in 200 mls @ 200 mls/hr 07/20/24 22:00 07/21/24 08:23 Cipro IV Infused Q8H JP Infusion Protocol Metronidazole 500 mg in 100 mls @ 100 mls/hr 07/20/24 21:00 07/21/24 06:41 Flagyl Iv IV Infused Q8H JP Infusion Protocol Morphine Sulfate 4 mg 07/20/24 20:26 07/20/24 20:53 Morphine 4 Mg/Ml Sdv 1 Ml IVP 4 mg Q4H PRN Administration SEVERE PAIN PFSH Anesthesia Medical History Smoker Foot fracture, left 2018 broke 4 bones in left foot Ruptured lumbar disc 2011 Ocular migraine Frequent UTI Generalized anxiety disorder Hyperlipidemia Surgical History Hx of excision of mass Dr Joy- 04/23/24 Excision of subcutaneous mass of chest Excision of skin and subcutaneous tissue right groin Excision of skin and subcutaneous tissue left groin Hx of bladder repair surgery 2011, 2011 History of arthroscopic surgery of shoulder 2008, both shoulders History of carpal tunnel release of both wrists 1998 Family History Mother Cancer breast Family/Other Cancer maternal uncle, colon cancer, age 40 Family/Other Cancer Leukemia, paternal aunt Brother Cancer Lung cancer, smoker/asbestos Social History Smoking and tobacco/nicotine status: current every day tobacco/nicotine user Quit status (tobacco/nicotine): has quit using Former quit date comment: 30-40 pack year history Alcohol intake: never Substance/Drug Use: never 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 Data Anesthesia 07/20/24 15:59 07/20/24 15:59 Short CBC 07/20/24 Range/Units 15:59 WBC 12.93 H (3.29-11.43) 10^3/uL Hgb 14.00 (11.27-16.99) g/dL Hct 43.1 (36-47) % MCV 93.1 (85-98) fl Plt Count 334 (157-399) 10^3/cmm Neut % (Auto) 68.3 % Neut # (Auto) 8.84 H (1.8-7.7) 10^3/uL BMP 07/20/24 15:59 Sodium 138 Potassium 4.2 Chloride 101 Carbon Dioxide 25 BUN 13 Creatinine 0.7 Glucose 112 Calcium 9.3 Liver Function 07/20/24 Range/Units 15:59 Total Bilirubin 0.2 (0.15-1.2) mg/dL AST 15 (0-32) U/L ALT 17 (0-33) U/L Alkaline Phosphatase 105 (35-105) U/L Albumin 4.3 (3.5-5.2) g/dL Urine 07/20/24 Range/Units 15:55 Urine Color Yellow (Yellow) Urine Appearance Clear (CLEAR) Urine pH 5.5 (5-7) Ur Specific [place] 1.008 (1.005-1.030) Urine Protein Negative (Negative) Urine Glucose (UA) Negative (Normal) Urine Ketones Negative (Negative) Urine Nitrate Negative (Negative) Urine Bilirubin Negative (Negative) Ur Leukocyte Esterase Negative (Negative) Urine RBC 0-2 (0-2) /hpf Urine WBC 0-5 (0-5) /hpf Microbiology 07/20/24 16:00 Blood Culture - Preliminary Blood SPECIMEN COLLECTED 07/20/24 15:59 Blood Culture - Preliminary Blood SPECIMEN COLLECTED Cardiac Studies: 2 No Data to Display
--- NOTE | 2024-07-21 10:18 | P.HP_ITS ---
Providers/Chief Complaint 2 Admitting Physician: Faisal Justice MD Primary Care Provider: Wetson Banegas MD Chief Complaint: abd pain, back pain History of Present Illness Mindy Velez is a 64 year old female who presents with non complicated acute appendicitis. Patient reports acute onset right lower quadrant pain. Only surgeries remote hysterectomy and urethral sling. Medications/Allergies Home Medications Medication Instructions Recorded Confirmed Last Taken Type ibuprofen 800 mg tablet 800 mg PO Q8H PRN Pain 06/15/22 07/20/24 07/19/24 History albuterol sulfate 90 mcg/actuation 2 puff inhalation Q6H PRN 12/26/23 07/20/24 Unknown Rx aerosol inhaler (Ventolin HFA) shortness of breath or wheezing #8.5 grams epinephrine 0.1 mg/0.1 mL 0.1 ml IM ONCE #2 ea 04/04/24 07/20/24 Unknown Rx injection, auto-injector magnesium 200 mg tablet 400 mg PO DAILY 04/23/24 07/20/24 07/19/24 History alprazolam 0.5 mg tablet 0.5 mg PO TID #90 tabs 06/24/24 07/20/24 07/19/24 Rx omeprazole 20 mg capsule,delayed 20 mg PO DAILY #90 caps 06/26/24 07/20/24 07/19/24 Rx release simvastatin 20 mg tablet 20 mg PO DAILY #90 tabs 06/26/24 07/20/24 07/19/24 Rx vits,calcium 21-iron fum 1 tab PO DAILY 07/20/24 07/20/24 07/19/24 History 14 mg iron-folic acid 400 mcg tablet ( Complete) Allergies Allergy/AdvReac Type Severity Reaction Status Date / Time latex Allergy ALGY-Bliste Verified 07/20/24 15:41 r Penicillins AdvReac Intermediate hives, Verified 07/20/24 15:41 throat swelling Sulfa (Sulfonamide AdvReac Intermediate anaphylaxis Verified 07/20/24 15:41 Antibiotics) tree nut AdvReac Intermediate throat Verified 07/20/24 15:41 swelling PFSH Acute 2 PFSH: Medical History Smoker Foot fracture, left 2018 broke 4 bones in left foot Ruptured lumbar disc 2011 Ocular migraine Frequent UTI Generalized anxiety disorder Hyperlipidemia Surgical History Hx of excision of mass Dr Joy- 04/23/24 Excision of subcutaneous mass of chest Excision of skin and subcutaneous tissue right groin Excision of skin and subcutaneous tissue left groin Hx of bladder repair surgery 2011 History of arthroscopic surgery of shoulder 2008, both shoulders History of carpal tunnel release of both wrists 1998 Family History Mother Cancer breast Family/Other Cancer maternal uncle, colon cancer, age 40 Family/Other Cancer Leukemia, paternal aunt Brother Cancer Lung cancer, smoker/asbestos Social History Smoking and tobacco/nicotine status: current every day tobacco/nicotine user Quit status (tobacco/nicotine): has quit using Former quit date comment: 30-40 pack year history Alcohol intake: never Substance/Drug Use: never 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 Vitals/I&O/Wt Last Vital Signs Temp 97.5 F L 07/21/24 08:51 Pulse 59 L 07/21/24 08:51 Resp 18 07/21/24 08:51 BP 117/60 07/21/24 08:51 Pulse Ox 94 07/21/24 08:51 O2 Del Method Room Air 07/21/24 08:51 07/20/24 07/21/24 07/21/24 22:59 06:59 14:59 Intake Total 120 / 120 300 / 420 200 / 200 Balance 120 / 120 300 / 420 200 / 200 Weight last 48 hrs Weight 193 lb 9.6 oz Weight 193 lb 6.4 oz Weight 192 lb Physical Exam 2 Narrative: RRR Unlabored breathing RA Abdomen soft, TTP RLQ, mildly distended Data 07/20/24 15:59 07/20/24 15:59 Micro: Microbiology 07/20/24 16:00 Blood Culture - Preliminary Blood SPECIMEN COLLECTED 07/20/24 15:59 Blood Culture - Preliminary Blood SPECIMEN COLLECTED A&P Assessment and plan (1) Acute appendicitis: Plan 64yo female with non complicated acute appendicitis. Discussed risks and benefits and patient agreed to proceed with laparoscopic appendectomy, possible open. Attestations 2 Medical Necessity Statement*: IV antibiotics, IV fluids, need for appendectomy Coding Level of Care Code 39673 Diagnoses Acute appendicitis K35.80 Time Spent (min) 30
[2024-07-21] MEDS: cefTRIAXone 2,000 mg SDV 2000 MG IVP (11:08)
[2024-07-21] MEDS: BUPivacaine 0.25% INJ 30 mL INJECTION (11:55)
[2024-07-21] MEDS: lidocaine-epi 1% PF 1:200,000 30 mL SDV INJECTION (11:55)
--- NOTE | 2024-07-21 12:00 | W.PM.BPONFUL ---
Date of Procedure: 07/21/2024 Surgeon: Dr. Justice Patent Law Specialist(s): N/A Procedure(s) performed: Laparoscopic appendectomy Findings of the procedure(s): Acute appendicitis Estimated blood loss: 10 cc Specimen(s) removed: Appendix Post-operative diagnosis: Acute appendicitis Pathology: Appendix sent to pathology Implant(s): N/A Anesthesia: General Anesthesia Complications: None Brief history/preop diagnosis: 64-year-old female who presented with acute appendicitis. Discussed risk and benefits of laparoscopic appendectomy, possible open and patient agreed to proceed. Full operative report: After having a discussion about risks and benefits and obtaining consent, patient was brought to the OR. SCDs were functioning prior to intubation. Antibiotics were given prior to incision. General anesthesia was administered. Arms were tucked. A dhillon catheter was placed. The abdomen was prepped and draped in the usual sterile fashion. Insufflation was achieved using a Veress needle at Winston's point (15mmHg). A 5mm port was placed at the umbilicus using an optical view port. Then a 5mm port was placed suprapubically, and a 12mm port was placed in the left lower quadrant. The abdomen was inspected and no injuries were noted. Patient was placed in Trendelenburg and the table was rotated left. Using atraumatic bowel graspers the small bowel was placed on the left side of the abdomen, revealing the cecum and inflammed appendix. The appendix was dissected off the pelvic side wall bluntly. The appendix was grasped and the mesoappendix was taken down using a Ligasure. The base of the appendix was found to be intact. I proceeded to staple off the appendix at its base using a laparoscopic stapler with a blue load. The appendix was then retrieved using an endocatch bag. The staple line on the cecum was inspected, and found to be intact. The abdomen was desufflated and skin was closed using 4-0 monocryl and surgical glue. The patient woke up from anesthesia and was transferred to PACU without any complications Condition: Stable Dispostion: Floor
[2024-07-21] MEDS: oxyCODONE 5 mg IR Tab/Cap PO (14:07)
--- NOTE | 2024-07-21 14:08 | PC.NURSE ---
Medication Note: Orthostatic vitals obtained prior to giving Oxycodone 5 mg. Laying: Pulse 53 O2 96% on room air Blood Pressure: 121/62 Sitting: Pulse 68 O2 95% on room air Blood Pressure 118/70 Standing: Pulse 76 O2 95% on room air Blood Pressure 131/64
--- NOTE | 2024-07-23 13:53 | PM.DCS ---
Discharge Providers Date of Admission: 07/20/24 18:39 Date of Discharge: July 23, 2024 Attending Provider at Admission: Faisal Justice MD Attending Provider at Discharge: Faisal Justice MD Primary Care Provider: Weston Banegas MD Diagnoses at Discharge Discharge Diagnosis (1) Acute appendicitis: Status: Resolved Reason for Visit Reason for Visit: abd pain, back pain Hospital Course Hospital Course 64-year-old female who presented with acute appendicitis. Treated with IV antibiotics and taken to the OR for laparoscopic appendectomy. She recovered well after surgery and was discharged. Physical Exam Narrative: Chest: Unlabored breathing room air. No lymphadenopathy. Heart: Regular rate and rhythm. Abdomen: Soft, nontender, nondistended. No masses or lymphadenopathy. Incisions clean dry intact. Urinary Catheter Management: Loera: Cath Placed During This Visit: yes, but has since been removed by the nurse Urinary Catheter Date of Insertion: 07/21/24 Urinary Catheter Time of Insertion: 11:35 Date Urinary Catheter Removed: 07/21/24 Time Urinary Catheter Discontinued: 12:05 Discharge Data Studies Completed and Pending Completed Studies During Hospitalization Category Date Time Status CT abdomen pelvis w con* [id number] Stat Cat Scan 07/20/24 16:29 Completed Pending at discharge Category Date Time Status Blood Culture Stat Lab 07/20/24 16:00 Results Pathology: Surgical [PTH] Routine Pth 07/21/24 11:53 Received Radiology Impressions Abdomen/Pelvis CT 07/20/24 16:29 IMPRESSION: Mild acute uncomplicated appendicitis. ADDENDUM: 07/20/24 [id number] ADDENDUM: I was informed by the PCS team that LUIS WILDER has the report and has no further questions. Laboratory Results WBC 12.93 10^3/uL (3.29-11.43) H 07/20/24 15:59 RBC 4.63 10^6/uL (3.85-5.65) 07/20/24 15:59 Hgb 14.00 g/dL (11.27-16.99) 07/20/24 15:59 Hct 43.1 % (36-47) 07/20/24 15:59 MCV 93.1 fl (85-98) 07/20/24 15:59 MCH 30.2 pg (27-33) 07/20/24 15:59 MCHC 32.5 g/dL (30-55) 07/20/24 15:59 RDW 13.2 % (12.1-15.1) 07/20/24 15:59 Plt Count 334 10^3/cmm (157-399) 07/20/24 15:59 MPV 10.1 fL (7.4-10.4) 07/20/24 15:59 Neut % (Auto) 68.3 % 07/20/24 15:59 Lymph % (Auto) 22.0 % 07/20/24 15:59 [place] % (Auto) 7.8 % 07/20/24 15:59 Eos % (Auto) 1.2 % 07/20/24 15:59 Baso % (Auto) 0.4 % 07/20/24 15:59 Neut # (Auto) 8.84 10^3/uL (1.8-7.7) H 07/20/24 15:59 Lymph # (Auto) 2.8 10^3/uL (0.8-4.8) 07/20/24 15:59 [place] # (Auto) 1.0 10^3/uL (0.2-0.9) H 07/20/24 15:59 Eos # (Auto) 0.2 10^3/uL (0.0-0.8) 07/20/24 15:59 Baso # (Auto) 0.1 10^3/uL (0.0-0.1) 07/20/24 15:59 Nucleated RBC % (auto) 0 % 07/20/24 15:59 Nucleated RBCs # 0.0 /100WBC 07/20/24 15:59 Sodium 138 mmol/L (136-145) 07/20/24 15:59 Potassium 4.2 mmol/L (3.5-5.1) 07/20/24 15:59 Chloride 101 mmol/L (98-107) 07/20/24 15:59 Carbon Dioxide 25 mmol/L (22-29) 07/20/24 15:59 Anion Gap 16.2 (5-19) 07/20/24 15:59 BUN 13 mg/dL (8-23) 07/20/24 15:59 Creatinine 0.7 mg/dL (0.5-0.9) 07/20/24 15:59 GFR Calculation 84.0 mL/min (90-130) L 07/20/24 15:59 Glucose 112 mg/dL (65-115) 07/20/24 15:59 Calculated Osmolality 287 mOsm/kg (285-295) 07/20/24 15:59 Lactic Acid 1.3 mmol/L (0.5-2.2) 07/20/24 15:59 Calcium 9.3 mg/dL (8.5-10.5) 07/20/24 15:59 Total Bilirubin 0.2 mg/dL (0.15-1.2) 07/20/24 15:59 AST 15 U/L (0-32) 07/20/24 15:59 ALT 17 U/L (0-33) 07/20/24 15:59 Alkaline Phosphatase 105 U/L (35-105) 07/20/24 15:59 Total Protein 6.5 g/dL (6.6-8.7) L 07/20/24 15:59 Albumin 4.3 g/dL (3.5-5.2) 07/20/24 15:59 Globulin 2.2 g/dL (1.3-4.6) 07/20/24 15:59 Lipase 15 U/L (13-60) 07/20/24 15:59 Urine Color Yellow (Yellow) 07/20/24 15:55 Urine Appearance Clear (CLEAR) 07/20/24 15:55 Urine pH 5.5 (5-7) 07/20/24 15:55 Ur Specific [place] 1.008 (1.005-1.030) 07/20/24 15:55 Urine Protein Negative (Negative) 07/20/24 15:55 Urine Glucose (UA) Negative (Normal) 07/20/24 15:55 Urine Ketones Negative (Negative) 07/20/24 15:55 Urine Blood Trace (Negative) A 07/20/24 15:55 Urine Nitrate Negative (Negative) 07/20/24 15:55 Urine Bilirubin Negative (Negative) 07/20/24 15:55 Urine Urobilinogen 0.2 mg/dL (Negative) 07/20/24 15:55 Ur Leukocyte Esterase Negative (Negative) 07/20/24 15:55 Urine RBC 0-2 /hpf (0-2) 07/20/24 15:55 Urine WBC 0-5 /hpf (0-5) 07/20/24 15:55 Ur Squamous Epith Cells 0-5 /hpf (0-5) 07/20/24 15:55 Amorphous Sediment Not Reportable 07/20/24 15:55 Urine Bacteria None seen /hpf (NONE) 07/20/24 15:55 Hyaline Casts 0-4 /lpf H 07/20/24 15:55 Vitals Last Vital Signs Temp 97.8 F 07/21/24 15:22 Pulse 76 07/21/24 15:22 Resp 18 07/21/24 15:22 BP 131/64 07/21/24 15:22 Pulse Ox 95 07/21/24 15:22 O2 Del Method Room Air 07/21/24 12:39 O2 Flow Rate 10 07/21/24 12:29 Discharge Plan Discharge Patient Disposition: Home Condition: Stable Prescriptions: New oxycodone 5 mg tablet 5 mg PO Q6H PRN (Reason: pain) 5 Days Qty: 10 0RF Continued simvastatin 20 mg tablet 20 mg PO DAILY Qty: 90 3RF omeprazole 20 mg capsule,delayed release(DR/EC) 20 mg PO DAILY Qty: 90 3RF epinephrine 0.1 mg/0.1 mL auto-injector 0.1 ml IM ONCE Qty: 2 0RF ibuprofen 800 mg tablet 800 mg PO Q8H PRN (Reason: Pain) Hold Instructions: Resume on 09/24/22. albuterol sulfate [Ventolin HFA] 90 mcg/actuation HFA aerosol inhaler 2 puff inhalation Q6H PRN (Reason: shortness of breath or wheezing) Qty: 8.5 11RF alprazolam 0.5 mg tablet 0.5 mg PO TID Qty: 90 4RF Complete 14 mg iron- 400 mcg Tablet 1 tab PO DAILY magnesium 200 mg Tablet 400 mg PO DAILY Discharge Orders: Discharge Order (Routine); Ordered 07/21/24 Ordered By: Faisal Justice Referrals: Faisal Justice MD [Physician] - 2 weeks (We have notified Dr Justice's clinic of the need for a follow-up appointment to be scheduled. If you have not heard from them within the next 2 business days, please call them directly. ) Weston Banegas MD [Primary Care Provider] - (We have notified your physician's clinic of the need for a follow-up appointment to be scheduled. If you have not heard from them within the next 2 business days, please call them directly. ) Discharge Diet: Advance as tolerated Discharge Activity: Limit activity as instructed Patient Instructions: Oxycodone, Rapid Release (By mouth), Appendicitis (GEN), Acute Wound Care (DC), Laparoscopic Appendectomy (DC), Opioid Safety, Post Anesthesia Care Activity Restrictions/Additional Instructions: 1. No heavy exercise or lifting greater than 10lbs for 6 weeks. 2. No pools, saunas, bathtubs for [address] if taking narcotics. 4. You may take over the counter tylenol 650mg every 6 hrs and ibuprofen 400mg every 6 hrs as needed for 5 days in addition to the oxycodone. 5. Follow-up in clinic in 2 weeks. 6. Call the office if you have any concerns or questions. Discharge Attestations Time Spent in Discharge Care*: greater than 30 min Quality Metrics Clinical Quality Measures [ No reported AMI, CVA or VTE this stay] Coding Level of Care Code Acute Code for [facility] Fwd Diagnoses Acute appendicitis K35.80 Time Spent (min) 30
== END 2024-07-21 15:23 | disposition home or self-care (01) | DRG 399 ==
LOC: ER 18:40 → MEDSURG 19:27
PROVIDERS: Admitting Provider Student in an Organized Health Care Education/Training Program; Emergency Provider Emergency Medicine; PCP Family Medicine; Visit Provider Student in an Organized Health Care Education/Training Program
PROC: 0DTJ4ZZ Resection of Appendix, Percutaneous Endoscopic Approach (ICD-10-PCS; CPT 44970; principal; 2024-07-21 09:25)
DX: K35.80 Unspecified acute appendicitis (principal); E78.5 Hyperlipidemia, unspecified; F41.1 Generalized anxiety disorder; Z87.440 Personal history of urinary (tract) infections; Z87.891 Personal history of nicotine dependence; K21.9 Gastro-esophageal reflux disease without esophagitis
CPT/HCPCS: 36415; 51702; 74177; 80053; 81001; 83605; 83690; 85025; 87040; 88304; 96365; 96367; 99285; J0330; J0696; J0744; J1100; J2270; J2405; J2704; J3010; J3490; J7030

== ENCOUNTER 2024-07-22 16:32 | Emergency (ER) | payer MEDICARE, OTHER, SELFPAY ==
--- NOTE | 2024-07-22 16:33 | XRR_ITS ---
PROCEDURE INFORMATION: Exam: XR Chest Exam date and time: 07/22/2024 4:46 PM Age: 64 years old Clinical indication: Pain; Chest pressure; Additional info: Cp TECHNIQUE: Imaging protocol: Radiologic exam of the chest. Views: 1 view. COMPARISON: CT abdomen pelvis w con* [id number] 07/20/2024 5:18 PM FINDINGS: Lungs: Unremarkable. No consolidation. Pleural spaces: Unremarkable. No pleural effusion. No pneumothorax. Heart/Mediastinum: Unremarkable. No cardiomegaly. Bones/joints: Unremarkable. XR/XR chest 1V portable [id number] IMPRESSION: No acute findings.
--- NOTE | 2024-07-22 16:38 | ECG_ITS ---
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 Measurements Intervals [place] Rate: 69 P: 60 SD: 151 QRS: 41 QRSD: 93 T: 56 QT: 357 QTc: 383 Interpretive Statements SINUS RHYTHM No previous ECG available for comparison Electronically Signed On 07-25-2024 21:18:30 CH[employer]ER INSOLE by Laura Schmidt M.D. [id number]
[2024-07-22 16:41] VITALS: BP 133/70; PULSE 66; RESP 16; TEMP 36.9; O2SAT 99; BMI 36.4
--- NOTE | 2024-07-22 16:52 | XRR_ITS ---
PROCEDURE INFORMATION: Exam: XR Abdomen Exam date and time: 07/22/2024 5:33 PM Age: 64 years old Clinical indication: Other: Chest pain; Prior surgery; Surgery date: Post-operative (0-2 days); Surgery type: Appendectomy yesterday; Additional info: Chest pain, appendix removed yesterday TECHNIQUE: Imaging protocol: Radiologic exam of the abdomen. Views: 2 Views. Upright and supine views. COMPARISON: CT abdomen pelvis w con* [id number] 07/20/2024 5:18 PM FINDINGS: Gastrointestinal tract: Normal. No bowel dilation. Intraperitoneal space: Normal. No definite free air. Bones/joints: Unremarkable for age. XR/XR abdomen min 2V [id number] IMPRESSION: No acute findings.
[2024-07-22 18:16] LABS: Basophils % 0.1 %; Eosinophils # 0.1 10^3/uL (0.0-0.8); Eosinophils % 0.5 %; Hematocrit 38.4 % (36-47); Lymphocytes # 3.5 10^3/uL (0.8-4.8); Lymphocytes % 23.2 %; Mean Corpuscular HGB Conc 33.1 g/dL (30-55); Mean Corpuscular Hemoglobin 31.1 pg (27-33); Mean Corpuscular Volume 94.1 fl (85-98); Mean Platelet Volume 10.5 fL (7.4-10.4); Monocytes # 1.1 10^3/uL (0.2-0.9); Monocytes % 7.5 %; Neutrophils # 10.31 10^3/uL (1.8-7.7); Neutrophils % 68.4 %; Nucleated Red Blood Cells % 0 %; Platelet Count 325 10^3/cmm (157-399); Red Blood Count 4.08 10^6/uL (3.85-5.65); Red Cell Distribution Width 13.2 % (12.1-15.1); White Blood Count 15.11 10^3/uL (3.29-11.43)
--- NOTE | 2024-07-22 18:28 | ECG_ITS ---
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 Measurements Intervals [place] Rate: 66 P: 53 PA: 158 QRS: 43 QRSD: 98 T: 59 QT: 349 QTc: 367 Interpretive Statements SINUS RHYTHM Compared to ECG 07/22/2024 16:38:31 No significant changes Electronically Signed On 07-28-2024 20:41:52 CHUCK BONER by Laura Schmidt M.D. [id number]
[2024-07-22 18:32] LABS: Troponin(5th) Baseline 13 ng/L (0-10)
--- NOTE | 2024-07-22 18:32 | CTR_ITS ---
PROCEDURE INFORMATION: Exam: CTA Chest With Contrast Exam date and time: 07/22/2024 6:52 PM Age: 64 years old Clinical indication: Chest wall pain; Prior surgery; Surgery date: 6+ months; Surgery type: Chest pain; Has decreased since here. Appy removed 07/21/2024; Additional info: Cp TECHNIQUE: Imaging protocol: Computed tomographic angiography of the chest with contrast. Exam focused on the arteries. 3D rendering (Not supervised by radiologist): MIP and/or 3D reconstructed images were created by the technologist. Radiation optimization: All CT scans at this facility use at least one of these dose optimization techniques: automated exposure control; mA and/or kV adjustment per patient size (includes targeted exams where dose is matched to clinical indication); or iterative reconstruction. Contrast material: OMNIPAQUE 350; Contrast volume: 100 ml; Contrast route: INTRAVENOUS (IV); COMPARISON: CR (CHEST, ) 07/22/2024 4:46 PM RADIATION DOSE METRICS: Total DLP (mGy-cm): 441.76 FINDINGS: Pulmonary arteries: Normal. No pulmonary emboli. Aorta: Mild atherosclerotic aortic calcifications. No aortic aneurysm. Thyroid: Mild asymmetric enlargement of the right thyroid lobe with a few ill-defined subcentimeter nodules. Lungs: Scattered ground-glass opacities throughout the lungs, most pronounced in the lower lobes bilaterally. Areas of mild interlobular septal thickening are also noted. Somewhat ill-defined ground-glass opacity in the posterior right upper lobe measures 1.6 cm. Pleural spaces: Unremarkable. No pneumothorax. No pleural effusion. Heart: Unremarkable. No cardiomegaly. No pericardial effusion. Mediastinal space: Small layering mucus within the upper thoracic trachea. Lymph nodes: Calcified left hilar lymph nodes. No adenopathy by size criteria. Bones/joints: Unremarkable. No acute fracture. Soft tissues: Unremarkable. CT/CT angio chest PE protcl [id number] IMPRESSION: 1. No evidence of pulmonary embolism. 2. Scattered ground-glass opacities with areas of mild interlobular septal thickening, most pronounced in the lower lobes, may represent hypoventilatory changes. Mild edema possible but considered less likely. 3. 1.6 cm right upper lobe ground-glass nodule is nonspecific. Recommend follow-up CT chest in 3-6 months to document stability per Fleischner criteria.
--- NOTE | 2024-07-22 18:34 | ED_ITS ---
HPI - Chest Pain 2 General: Chief Complaint: Chest Pain Stated Complaint: cp Time Seen by Provider: 07/22/24 18:27 Source: patient Mode of arrival: ambulatory Limitations: no limitations History of Present Illness: 64-year-old female who states she starte d having a sharp chest pain little over 2 hours ago. States it was sudden onset in the center of her chest states since then it has subsided denies any pain currently denies any severe dyspnea. She denies any vomiting or diarrhea she did have her appendix out yesterday denies any severe abdominal pain. Associated symptoms: Deny abdominal pain, dyspnea, fever(s), nausea or vomiting Related Data Home Medications Medication Instructions Recorded Confirmed ibuprofen 800 mg tablet 800 mg PO Q8H PRN Pain 06/15/22 07/20/24 magnesium 200 mg tablet 400 mg PO DAILY 04/23/24 07/20/24 vits,calcium 21-iron fum 1 tab PO DAILY 07/20/24 07/20/24 14 mg iron-folic acid 400 mcg tablet ( Complete) Previous Rx's Medication Instructions Recorded albuterol sulfate 90 mcg/actuation 2 puff inhalation Q6H PRN 12/26/23 aerosol inhaler (Ventolin HFA) shortness of breath or wheezing #8.5 grams epinephrine 0.1 mg/0.1 mL 0.1 ml IM ONCE #2 ea 04/04/24 injection, auto-injector alprazolam 0.5 mg tablet 0.5 mg PO TID #90 tabs 06/24/24 omeprazole 20 mg capsule,delayed 20 mg PO DAILY #90 caps 06/26/24 release simvastatin 20 mg tablet 20 mg PO DAILY #90 tabs 06/26/24 oxycodone 5 mg tablet 5 mg PO Q6H PRN pain 5 days #10 07/21/24 tabs Allergies Allergy/AdvReac Type Severity Reaction Status Date / Time latex Allergy ALGY-Bliste Verified 07/22/24 16:48 r Penicillins AdvReac Intermediate hives, Verified 07/22/24 16:48 throat swelling Sulfa (Sulfonamide AdvReac Intermediate anaphylaxis Verified 07/22/24 16:48 Antibiotics) tree nut AdvReac Intermediate throat Verified 07/22/24 16:48 swelling Review of Systems 2 Const: Denies: fever(s), chills, body aches or change in appetite ENMT: Denies: throat pain or dental pain Card: Reports: chest pain Resp: Denies: dyspnea GI: Denies: abdominal pain, nausea, vomiting or diarrhea : Denies: dysuria Musc: Denies: neck pain or back pain Skin/Breast: Denies: rash Neuro: Denies: headache(s) PFSH ED 2 PFSH: Medical History Smoker Foot fracture, left 2018 broke 4 bones in left foot Ruptured lumbar disc 2011 Ocular migraine Frequent UTI Generalized anxiety disorder Hyperlipidemia Surgical History Hx of excision of mass Dr Joy- 04/23/24 Excision of subcutaneous mass of chest Excision of skin and subcutaneous tissue right groin Excision of skin and subcutaneous tissue left groin Hx of bladder repair surgery 2011, 2011 History of arthroscopic surgery of shoulder 2008, both shoulders History of carpal tunnel release of both wrists 1998 Family History Mother Cancer breast Family/Other Cancer maternal uncle, colon cancer, age 40 Family/Other Cancer Leukemia, paternal aunt Brother Cancer Lung cancer, smoker/asbestos Social History Smoking and tobacco/nicotine status: current every day tobacco/nicotine user Quit status (tobacco/nicotine): has quit using Former quit date comment: 30-40 pack year history Alcohol intake: never Substance/Drug Use: never 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 Physical Exam 2 Const: COMMON NORMALS: no acute distress, patient oriented x3 and healthy appearing HENMT: COMMON NORMALS: normocephalic and atraumatic HEAD & SCALP: n ormocephalic and atraumatic Neck/C-Spine: COMMON NORMALS: full ROM and supple Chest: COMMONS NORMALS: normal inspection of the chest Resp: COMMON NORMALS: normal respiratory effort, No retractions, No use of accessory muscles and clear to auscultation bilaterally AUSCULTATION: clear to auscultation bilaterally Cardio: COMMON NORMALS: regular rate, regular rhythm and No murmurs present (Cardio) RATE: regular rate RHYTHM: regular rhythm GI: COMMON NORMALS: Normal to inspection, nondistended, normoactive bowel sounds present, Soft to palpation, non-tender and no masses PALPATION: Yes Soft to palpation Extremity: COMMON NORMALS: normal to inspection and full ROM Neuro: COMMON NORMALS: patient oriented x3, moves all extremities and no focal motor deficits Psych: COMMON NORMALS: mental status grossly normal, Normal thought process present and cooperative THOUGHT PROCESS: Normal thought process present Skin: COMMON NORMALS: no rashes or lesions noted and no wounds GENERAL SKIN EXAM: no rashes or lesions noted Course 2 Vital Signs: Vital signs: Vital Signs Temperature 98.4 F 07/22/24 16:41 Pulse Rate 65 07/22/24 19:12 Respiratory Rate 17 07/22/24 19:12 Blood Pressure 113/50 07/22/24 19:12 Pulse Oximetry 98 07/22/24 19:12 Oxygen Delivery Me thod Room Air 07/22/24 19:12 MDM - Chest Pain Medical Decision Making Patient presents here with chest pain and atypical in nature her troponins here are negative no signs of ACS CTA shows no signs of dissection or pulmonary embolism. The pain could be related to her recent surgery she is comfortable here she stable for discharge she is follow-up with PCP I did inform her if her pain worsens she is to return she understands agrees to plan Medical Records I reviewed the patient's medical records. Lab Data I reviewed the patient's lab results. 07/22/24 17:55 07/22/24 17:55 Radiology Impressions Chest X-Ray 07/22/24 16:33 IMPRESSION: No acute findings. Abdomen X-Ray 07/22/24 16:52 IMPRESSION: No acute findings. Chest CTA 07/22/24 18:32 IMPRESSION: 1. No evidence of pulmonary embolism. 2. Scattered ground-glass opacities with areas of mild interlobular septal thickening, most pronounced in the lower lobes, may represent hypoventilatory changes. Mild edema possible but considered less likely. 3. 1.6 cm right upper lobe ground-glass nodule is nonspecific. Recommend follow-up CT chest in 3-6 months to document stability per Fleischner criteria. Laboratory Results WBC 15.11 10^3/uL (3.29-11.43) H 07/22/24 17:55 RBC 4.08 10^6/uL (3.85-5.65) 07/22/24 17:55 Hgb 12.70 g/dL (11.27-16.99) 07/22/24 17:55 Hct 38.4 % (36-47) 07/22/24 17:55 MCV 94.1 fl (85-98) 07/22/24 17:55 MCH 31.1 pg (27-33) 07/22/24 17:55 MCHC 33.1 g/dL (30-55) 07/22/24 17:55 RDW 13.2 % (12.1-15.1) 07/22/24 17:55 Plt Count 325 10^3/cmm (157-399) 07/22/24 17:55 MPV 10.5 fL (7.4-10.4) H 07/22/24 17:55 Neut % (Auto) 68.4 % 07/22/24 17:55 Lymph % (Auto) 23.2 % 07/22/24 17:55 [place] % (Auto) 7.5 % 07/22/24 17:55 Eos % (Auto) 0.5 % 07/22/24 17:55 Baso % (Auto) 0.1 % 07/22/24 17:55 Neut # (Auto) 10.31 10^3/uL (1.8-7.7) H 07/22/24 17:55 Lymph # (Auto) 3.5 10^3/uL (0.8-4.8) 07/22/24 17:55 [place] # (Auto) 1.1 10^3/uL (0.2-0.9) H 07/22/24 17:55 Eos # (Auto) 0.1 10^3/uL (0.0-0.8) 07/22/24 17:55 Baso # (Auto) 0.0 10^3/uL (0.0-0.1) 07/22/24 17:55 Nucleated RBC % (auto) 0 % 07/22/24 17:55 Nucleated RBCs # 0.0 /100WBC 07/22/24 17:55 PT 12.20 SECONDS (12.1-14.9) 07/22/24 17:55 INR 0.88 (0.8-1.2) 07/22/24 17:55 Sodium 139 mmol/L (136-145) 07/22/24 17:55 Potassium 3.9 mmol/L (3.5-5.1) 07/22/24 17:55 Chloride 102 mmol/L (98-107) 07/22/24 17:55 Carbon Dioxide 24 mmol/L (22-29) 07/22/24 17:55 Anion Gap 16.9 (5-19) 07/22/24 17:55 BUN 20 mg/dL (8-23) 07/22/24 17:55 Creatinine 0.9 mg/dL (0.5-0.9) 07/22/24 17:55 GFR Calculation 62.8 mL/min (90-130) L 07/22/24 17:55 Glucose 113 mg/dL (65-115) 07/22/24 17:55 Calculated Osmolality 291 mOsm/kg (285-295) 07/22/24 17:55 Calcium 9.0 mg/dL (8.5-10.5) 07/22/24 17:55 Total Bilirubin 0.2 mg/dL (0.15-1.2) 07/22/24 17:55 AST 20 U/L (0-32) 07/22/24 17:55 ALT 18 U/L (0-33) 07/22/24 17:55 Alkaline Phosphatase 91 U/L (35-105) 07/22/24 17:55 Troponin T Baseline 13 ng/L (0-10) H 07/22/24 17:55 Troponin T 120 Minute 12.40 ng/L (0-10) H 07/22/24 19:07 Delta Troponin T -0.60 ABS# (0-10) L 07/22/24 19:07 Total Protein 5.8 g/dL (6.6-8.7) L 07/22/24 17:55 Albumin 4.1 g/dL (3.5-5.2) 07/22/24 17:55 Globulin 1.7 g/dL (1.3-4.6) 07/22/24 17:55 Lipase 12 U/L (13-60) L 07/22/24 17:55 All radiology interpretation(s) finalized by discharge EKG Data EKG 1: I personally reviewed and interpreted this EKG as follows: EKG interpretation date: 07/22/24 EKG interpretation time: 18:28 Interpretation: nsr hr [address] elevation qrs 98 qtc 363 Discharge Plan Discharge Patient Disposition: Home Clinical Impression: Chest pain Condition: Stable Prescriptions: No Action simvastatin 20 mg tablet 20 mg PO DAILY Qty: 90 3RF omeprazole 20 mg capsule,delayed release(DR/EC) 20 mg PO DAILY Qty: 90 3RF epinephrine 0.1 mg/0.1 mL auto-injector 0.1 ml IM ONCE Qty: 2 0RF ibuprofen 800 mg tablet 800 mg PO Q8H PRN (Reason: Pain) Hold Instructions: Resume on 04/26/24. albuterol sulfate [Ventolin HFA] 90 mcg/actuation HFA aerosol inhaler 2 puff inhalation Q6H PRN (Reason: shortness of breath or wheezing) Qty: 8.5 11RF alprazolam 0.5 mg tablet 0.5 mg PO TID Qty: 90 4RF Complete 14 mg iron- 400 mcg Tablet 1 tab PO DAILY oxycodone 5 mg tablet 5 mg PO Q6H PRN (Reason: pain) 5 Days Qty: 10 0RF magnesium 200 mg Tablet 400 mg PO DAILY Discharge Orders: Discharge ED (Routine); Ordered 07/22/24 Ordered By: Andrea Velasquez Referrals: Weston Banegas MD [Primary Care Provider] - 4-7 days Discharge Diet: Advance as tolerated Discharge Activity: Resume usual activity Patient Instructions: Chest Pain (ED) Coding Level of Care Code ED Exploration Manager for Randy Mo
[2024-07-22 18:38] LABS: INR 0.88 (0.8-1.2)
[2024-07-22] MEDS: iohexol 350 mg/mL 500 mL Btl (per mL) IV (18:54)
[2024-07-22 19:00] LABS: Alanine Aminotransferase 18 U/L (0-33); Albumin Level 4.1 g/dL (3.5-5.2); Alkaline Phosphatase 91 U/L (35-105); Anion Gap 16.9 (5-19); Aspartate Amino Transferase 20 U/L (0-32); Blood Urea Nitrogen 20 mg/dL (8-23); Carbon Dioxide 24 mmol/L (22-29); Chloride 102 mmol/L (98-107); Creatinine Clr Calc Pharmacy 62.6651; Globulin 1.7 g/dL (1.3-4.6); Glomerular Filtration Rate 62.8 mL/min (90-130); Glucose 113 mg/dL (65-115); Lipase 12 U/L (13-60); Osmolality Calculated 291 mOsm/kg (285-295); Potassium 3.9 mmol/L (3.5-5.1); Sodium 139 mmol/L (136-145); Total Bilirubin 0.2 mg/dL (0.15-1.2); Total Protein 5.8 g/dL (6.6-8.7)
[2024-07-22 19:12] VITALS: BP 113/50; PULSE 65; RESP 17; O2SAT 98
[2024-07-22 19:40] LABS: NT Pro B Type Natriuretic Pept 667 pg/mL (0-125)
[2024-07-22 20:08] VITALS: BP 125/97; PULSE 67; RESP 18; O2SAT 95
== END 2024-07-22 20:09 | disposition home or self-care (01) ==
PROVIDERS: Emergency Provider Emergency Medicine; PCP Family Medicine
DX: R07.9 Chest pain, unspecified (principal); Z72.0 Tobacco use; E78.5 Hyperlipidemia, unspecified
CPT/HCPCS: 36415; 71045; 71275; 74019; 74022; 80053; 83690; 83880; 84484; 85025; 85610; 93005; 99285

== ENCOUNTER → 2024-08-01 09:56 | Outpatient (BNVA) | payer MEDICARE, OTHER, SELFPAY | PROVIDERS: PCP Family Medicine; Visit Provider Student in an Organized Health Care Education/Training Program | DX: Z98.890 Other specified postprocedural states (principal) | CPT/HCPCS: 99024 ==

== ENCOUNTER → 2024-08-19 12:49 | Outpatient (BNVA) | payer MEDICARE, OTHER, SELFPAY | PROVIDERS: PCP Family Medicine; Visit Provider Surgery | DX: L73.2 Hidradenitis suppurativa (principal) | CPT/HCPCS: 99214 ==

== ENCOUNTER 2024-11-18 12:29 | Outpatient (CLI) | payer MEDICARE, OTHER, SELFPAY ==
--- NOTE | 2024-11-18 13:00 | CT_ITS ---
WS: [id number] CT chest w con* [id number] HISTORY: f/u on nodule and possible pulm fibrosis TECHNIQUE: Axial imaging performed through the thorax. Coronal and sagittal reformats are submitted. All CT scans at [facility] use at least one of these dose optimization techniques: automated exposure control; mA and/or kV adjustment per patient size (includes targeted exams where dose is matched to clinical indication); or iterative reconstruction. CONTRAST: Omnipaque 350; 100 mL IV. DLP: 440.57 mGy.cm COMPARISON: 07/22/2024 Lungs and central airway: Overall moderate interval improvement in aeration of both lungs since the prior study. There is less hazy attenuation throughout both lungs. Groundglass attenuation at the RIGHT apex has decreased in size but is still present measuring 1.3 cm in diameter. 3 mm nodule LEFT upper lobe, image 15 of series 4. Benign granuloma LEFT upper lobe. Pleura: Normal. No pleural effusion. Heart and pericardium: Normal size heart with no pericardial effusion. Mediastinum and donald: No mediastinum or hilar adenopathy. Vessels: Normal size aortic and pulmonary artery. No coronary artery calcifications. Chest wall and lower neck: No soft tissue masses. Upper abdomen: Hepatic steatosis. Focal enhancement on arterial imaging measures 12 mm in the superior liver most consistent with a hemangioma. No intrahepatic duct dilatation. No adrenal mass. Osseous structures: No destructive process. CT/CT chest w con* [id number] IMPRESSION: 1. Overall improved aeration of both lungs since 07/22/2024. 2. Persistent but decreased size of groundglass attenuation RIGHT upper lobe n ow measuring 1.3 cm. Decreased in size from 1.6 cm on the prior study. Recommen d continued follow-up. Follow-up chest CT recommended in 6 to 12 months. 3. No pneumonia. 4. No mediastinal or hilar adenopathy.
[2024-11-18 13:31] LABS: Blood Urea Nitrogen 17 mg/dL (8-23)
[2024-11-18] MEDS: iohexol 350 mg/mL 500 mL Btl (per mL) IV (13:45)
== END 2024-11-18 12:30 | disposition home or self-care (01) ==
LOC: RAD 12:30
PROVIDERS: PCP Family Medicine; Visit Provider Family Medicine
DX: R91.1 Solitary pulmonary nodule (principal); J98.4 Other disorders of lung; J84.10 Pulmonary fibrosis, unspecified; K76.0 Fatty (change of) liver, not elsewhere classified; R93.89 Abnormal findings on diagnostic imaging of other specified body structures
CPT/HCPCS: 71260; 82565; 84520

== ENCOUNTER 2025-01-18 16:15 | Emergency (ER) | payer OTHER, MEDICARE, SELFPAY ==
[2025-01-18 16:18] VITALS: BP 155/82; PULSE 80; RESP 18; TEMP 36.6; O2SAT 96
--- NOTE | 2025-01-18 17:09 | ECG_ITS ---
[facility] Test Date: 2025-01-18 Pat Name: Mindy Velez Department: Room: Gender: Female Assurance Analyst: : 1960 Requested By: Andrea Velasquez Order Number: [id number] Jessie MD: Laura Schmidt M.D. Measurements Intervals Chrisney Rate: 59 P: 37 DE: 151 QRS: 67 QRSD: 90 T: 48 QT: 384 QTc: 381 Interpretive Statements SINUS BRADYCARDIA Compared to ECG 07/22/2024 18:28:27 Sinus rhythm no longer present Electronically Signed On 01-19-2025 21:19:32 CDT by Laura Schmidt M.D. [email or web address]
--- NOTE | 2025-01-18 17:09 | CTR_ITS ---
PROCEDURE INFORMATION: Exam: CT Abdomen And Pelvis With Contrast Exam date and time: 01/18/2025 5:42 PM Age: 64 years old Clinical indication: Abdominal pain; Prior surgery; Surgery date: 6+ months; Surgery type: RT hip; Additional info: Abd pain TECHNIQUE: Imaging protocol: Computed tomography of the abdomen and pelvis with contrast. Radiation optimization: All CT scans at this facility use at least one of these dose optimization techniques: automated exposure control; mA and/or kV adjustment per patient size (includes targeted exams where dose is matched to clinical indication); or iterative reconstruction. Contrast material: OMNIPAQUE 350; Contrast volume: 100 ml; Contrast route: INTRAVENOUS (IV); COMPARISON: CT abdomen pelvis w con* [id number] 07/20/2024 5:18 PM RADIATION DOSE METRICS: Total DLP (mGy-cm): 840.71 FINDINGS: Liver: Normal. No mass. Gallbladder and biliary ducts: Normal. No calcified stones. No ductal dilation. Pancreas: Normal. No ductal dilation. Spleen: Normal. No splenomegaly. Adrenal glands: Normal. No mass. Kidneys and ureters: Normal. No hydronephrosis. Stomach and bowel: Unremarkable. No obstruction. No mucosal thickening. Appendix: Status post appendectomy. Intraperitoneal space: Unremarkable. No free air. No significant fluid collection. Vasculature: Mild atherosclerotic aortoiliac calcifications. No abdominal aortic aneurysm. Lymph nodes: Unremarkable. No enlarged lymph nodes. Urinary bladder: Unremarkable as visualized. Reproductive: Unremarkable as visualized. Bones/joints: Stable mild superior endplate deformity at L5. Mild degenerative changes of the lumbar spine. No acute or aggressive osseous lesion. Soft tissues: Unremarkable. CT/CT abdomen pelvis w con* [id number] IMPRESSION: No acute findings in the abdomen/pelvis.
--- NOTE | 2025-01-18 17:11 | W.ED.ABDPA2 ---
HPI - Abdominal Pain General: Chief Complaint: Abdominal Pain Stated Complaint: abdominal pain Time Seen by Provider: 01/18/25 17:07 Source: patient Mode of arrival: ambulatory Limitations: no limitations History of Present Illness: 64-year-old female who states that she has been having increased abdominal pain since yesterday states pain has been severe in her lower abdomen states pain is currently 9 out of 10 radiates to her back she had some nausea denies any vomiting or fever denies any dysuria she had her appendix removed in July she has had some abdominal issues since then but the pain starting yesterday is much worse Associated Symptoms: Reports nausea; Denies chills, diarrhea, dysuria, fever(s) and vomiting Related Data Home Medications ?Medication ?Instructions ?Recorded ?Confirmed ibuprofen 800 mg tablet 800 mg PO Q8H PRN Pain 06/15/22 12/26/24 magnesium 200 mg tablet 400 mg PO DAILY 04/23/24 12/26/24 vits,calcium 21-iron fum 1 tab PO DAILY 07/20/24 12/26/24 14 mg iron-folic acid 400 mcg tablet ( Complete) Previous Rx's ?Medication ?Instructions ?Recorded albuterol sulfate 90 mcg/actuation 2 puff inhalation Q6H PRN 12/26/23 aerosol inhaler (Ventolin HFA) shortness of breath or wheezing #8.5 grams epinephrine 0.1 mg/0.1 mL 0.1 ml IM ONCE #2 ea 04/04/24 injection, auto-injector omeprazole 20 mg capsule,delayed 20 mg PO DAILY #90 caps 06/26/24 release simvastatin 20 mg tablet 20 mg PO DAILY #90 tabs 06/26/24 clindamycin HCl 300 mg capsule 300 mg PO QID #40 caps 08/20/24 alprazolam 0.5 mg tablet 0.5 mg PO TID #90 tabs 12/09/24 dicyclomine 20 mg tablet 20 mg PO TID abdominal pain #20 01/18/25 tabs ondansetron 4 mg disintegrating 4 mg PO Q6H PRN nausea and 01/18/25 tablet vomiting #14 tabs Allergies Allergy/AdvReac Type Severity Reaction Status Date / Time latex Allergy ALGY-Bliste Verified 08/19/24 14:12 r Penicillins AdvReac Intermediate hives, Verified 08/20/24 13:38 throat swelling Sulfa (Sulfonamide AdvReac Intermediate anaphylaxis Verified 08/19/24 14:12 Antibiotics) tree nut AdvReac Intermediate throat Verified 08/19/24 14:12 swelling Review of Systems Const: Denies: fever(s), chills, body aches or change in appetite ENMT: Denies: throat pain or dental pain Card: Denies: chest pain Resp: Denies: dyspnea GI: Reports: abdominal pain and nausea; Denies: vomiting or diarrhea : Denies: dysuria Musc: Denies: neck pain or back pain Skin/Breast: Denies: rash Neuro: Denies: headache(s) PFSH ED PFSH: Medical History Smoker Foot fracture, left 2018 broke 4 bones in left foot Ruptured lumbar disc 2011 Ocular migraine Frequent UTI Generalized anxiety disorder Hyperlipidemia Surgical History Hx of colonoscopy Dr Joy History of laparoscopic appendectomy 07/21/24 Dr Justice Hx of excision of mass Dr Joy- 04/23/24 Excision of subcutaneous mass of chest Excision of skin and subcutaneous tissue right groin Excision of skin and subcutaneous tissue left groin Hx of bladder repair surgery 2011, 2011 History of arthroscopic surgery of shoulder 2008, both shoulders History of carpal tunnel release of both wrists 1998 Family History Mother Cancer breast Family/Other Cancer maternal uncle, colon cancer, age 40 Family/Other Cancer Leukemia, paternal aunt Brother Cancer Lung cancer, smoker/asbestos Social History Smoking and tobacco/nicotine status: never used tobacco/nicotine Quit status (tobacco/nicotine): has quit using Former quit date comment: 30-40 pack year history Alcohol intake: never Substance/Drug Use: never 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 Physical Exam Const: COMMON NORMALS: patient oriented x3 HENMT: COMMON NORMALS: normocephalic and atraumatic HEAD & SCALP: normocephalic and atraumatic Neck/C-Spine: COMMON NORMALS: full ROM and supple Chest: COMMONS NORMALS: normal inspection of the chest Resp: COMMON NORMALS: normal respiratory effort Cardio: COMMON NORMALS: regular rate RATE: regular rate GI: OTHER: diffuse lower abd tenderness Extremity: COMMON NORMALS: normal to inspection and full ROM Neuro: COMMON NORMALS: patient oriented x3, moves all extremities and no focal motor deficits Psych: COMMON NORMALS: mental status grossly normal, Normal thought process present and cooperative THOUGHT PROCESS: Normal thought process present Skin: COMMON NORMALS: no rashes or lesions noted and no wounds GENERAL SKIN EXAM: no rashes or lesions noted Course Vital Signs: Vital signs: Vital Signs Temperature 97.8 F 01/18/25 16:18 Pulse Rate 60 01/18/25 19:00 Respiratory Rate 16 01/18/25 19:00 Blood Pressure 115/67 01/18/25 19:00 Pulse Oximetry 98 01/18/25 19:00 Oxygen Delivery Me thod Room Air 01/18/25 19:00 MDM - Abdominal Pain Medical Decision Making Patient presents with abdominal pain CT blood work here is all normal she feels improved we will place her on Zofran along with Bentyl she is to follow-up with her PCP and return if worsening she understands agrees to plan. Medical Records I reviewed the patient's medical records. Lab Data I reviewed the patient's lab results. 01/18/25 17:06 01/18/25 17:06 Labs/Radiology: Radiology Impressions Abdomen/Pelvis CT 01/18/25 17:09 IMPRESSION: No acute findings in the abdomen/pelvis. Laboratory Results WBC 10.79 10^3/uL (3.29-11.43) 01/18/25 17:06 RBC 4.53 10^6/uL (3.85-5.65) 01/18/25 17:06 Hgb 13.80 g/dL (11.27-16.99) 01/18/25 17:06 Hct 43.0 % (36-47) 01/18/25 17:06 MCV 94.9 fl (85-98) 01/18/25 17:06 MCH 30.5 pg (27-33) 01/18/25 17:06 MCHC 32.1 g/dL (30-55) 01/18/25 17:06 RDW 13.2 % (12.1-15.1) 01/18/25 17:06 Plt Count 317 10^3/cmm (157-399) 01/18/25 17:06 MPV 9.9 fL (7.4-10.4) 01/18/25 17:06 Neut % (Auto) 54.7 % 01/18/25 17:06 Lymph % (Auto) 34.6 % 01/18/25 17:06 Brooke % (Auto) 7.8 % 01/18/25 17:06 Eos % (Auto) 2.1 % 01/18/25 17:06 Baso % (Auto) 0.5 % 01/18/25 17:06 Neut # (Auto) 5.91 10^3/uL (1.8-7.7) 01/18/25 17:06 Lymph # (Auto) 3.7 10^3/uL (0.8-4.8) 01/18/25 17:06 Brooke # (Auto) 0.8 10^3/uL (0.2-0.9) 01/18/25 17:06 Eos # (Auto) 0.2 10^3/uL (0.0-0.8) 01/18/25 17:06 Baso # (Auto) 0.1 10^3/uL (0.0-0.1) 01/18/25 17:06 Nucleated RBC % (auto) 0 % 01/18/25 17:06 Nucleated RBCs # 0.0 /100WBC 01/18/25 17:06 Sodium 143 mmol/L (136-145) 01/18/25 17:06 Potassium 4.1 mmol/L (3.5-5.1) 01/18/25 17:06 Chloride 104 mmol/L (98-107) 01/18/25 17:06 Carbon Dioxide 27 mmol/L (22-29) 01/18/25 17:06 Anion Gap 16.1 (5-19) 01/18/25 17:06 BUN 15 mg/dL (8-23) 01/18/25 17:06 Creatinine 0.7 mg/dL (0.5-0.9) 01/18/25 17:06 GFR Calculation 84.0 mL/min (90-130) L 01/18/25 17:06 Glucose 117 mg/dL (65-115) H 01/18/25 17:06 Calculated Osmolality 298 mOsm/kg (285-295) H 01/18/25 17:06 Calcium 9.6 mg/dL (8.5-10.5) 01/18/25 17:06 Total Bilirubin 0.2 mg/dL (0.15-1.2) 01/18/25 17:06 AST 18 U/L (0-32) 01/18/25 17:06 ALT 18 U/L (0-33) 01/18/25 17:06 Alkaline Phosphatase 108 U/L (35-105) H 01/18/25 17:06 Total Protein 7.0 g/dL (6.6-8.7) 01/18/25 17:06 Albumin 4.0 g/dL (3.5-5.2) 01/18/25 17:06 Globulin 3.0 g/dL (1.3-4.6) 01/18/25 17:06 Lipase 15 U/L (13-60) 01/18/25 17:06 Urine Color Yellow (Yellow) 01/18/25 17:06 Urine Appearance Clear (CLEAR) 01/18/25 17:06 Urine pH 6.0 (5-7) 01/18/25 17:06 Ur Specific [place] 1.010 (1.005-1.030) 01/18/25 17:06 Urine Protein Negative (Negative) 01/18/25 17:06 Urine Glucose (UA) Negative (Normal) 01/18/25 17:06 Urine Ketones Negative (Negative) 01/18/25 17:06 Urine Blood Negative (Negative) 01/18/25 17:06 Urine Nitrate Negative (Negative) 01/18/25 17:06 Urine Bilirubin Negative (Negative) 01/18/25 17:06 Urine Urobilinogen 0.2 mg/dL (Negative) 01/18/25 17:06 Ur Leukocyte Esterase Negative (Negative) 01/18/25 17:06 Urine RBC 0-2 /hpf (0-2) 01/18/25 17:06 Urine WBC 0-5 /hpf (0-5) 01/18/25 17:06 Ur Squamous Epith Cells 0-5 /hpf (0-5) 01/18/25 17:06 Amorphous Sediment Not Reportable 01/18/25 17:06 Urine Bacteria None seen /hpf (NONE) 01/18/25 17:06 Hyaline Casts 0-4 /lpf H 01/18/25 17:06 All radiology interpretation(s) finalized by discharge EKG Data EKG 1: I personally reviewed and interpreted this EKG as follows: EKG interpretation date: 01/18/25 EKG interpretation time: 17:35 Interpretation: sinus rosy hr [address] elevation qrs 90 qtc 383 Discharge Plan Discharge Patient Disposition: Home Clinical Impression: Abdominal pain Condition: Stable Prescriptions: New ondansetron 4 mg tablet,disintegrating 4 mg PO Q6H PRN (Reason: nausea and vomiting) Qty: 14 0RF dicyclomine 20 mg tablet 20 mg PO TID Qty: 20 0RF No Action simvastatin 20 mg tablet 20 mg PO DAILY Qty: 90 3RF omeprazole 20 mg capsule,delayed release(DR/EC) 20 mg PO DAILY Qty: 90 3RF epinephrine 0.1 mg/0.1 mL auto-injector 0.1 ml IM ONCE Qty: 2 0RF clindamycin HCl 300 mg capsule 300 mg PO QID Qty: 40 0RF ibuprofen 800 mg tablet 800 mg PO Q8H PRN (Reason: Pain) albuterol sulfate [Ventolin HFA] 90 mcg/actuation HFA aerosol inhaler 2 puff inhalation Q6H PRN (Reason: shortness of breath or wheezing) Qty: 8.5 11RF alprazolam 0.5 mg tablet 0.5 mg PO TID Qty: 90 4RF Complete 14 mg iron- 400 mcg Tablet 1 tab PO DAILY magnesium 200 mg Tablet 400 mg PO DAILY Discharge Orders: Discharge ED (Routine); Ordered 01/18/25 Ordered By: Andrea Velasquez Referrals: Weston Banegas MD [Primary Care Provider, Family Practice] - 4-7 days Discharge Diet: Advance as tolerated Discharge Activity: Resume usual activity Patient Instructions: Abdominal Pain (ED) Print Language: Divehi Coding Level of Care Code ED Hand Assembler For Puller Over for Randy Mo
[2025-01-18 17:14] LABS: Basophils # 0.1 10^3/uL (0.0-0.1); Basophils % 0.5 %; Eosinophils # 0.2 10^3/uL (0.0-0.8); Eosinophils % 2.1 %; Lymphocytes # 3.7 10^3/uL (0.8-4.8); Lymphocytes % 34.6 %; Mean Corpuscular HGB Conc 32.1 g/dL (30-55); Mean Corpuscular Hemoglobin 30.5 pg (27-33); Mean Corpuscular Volume 94.9 fl (85-98); Mean Platelet Volume 9.9 fL (7.4-10.4); Monocytes # 0.8 10^3/uL (0.2-0.9); Monocytes % 7.8 %; Neutrophils # 5.91 10^3/uL (1.8-7.7); Neutrophils % 54.7 %; Nucleated Red Blood Cells % 0 %; Platelet Count 317 10^3/cmm (157-399); Red Blood Count 4.53 10^6/uL (3.85-5.65); Red Cell Distribution Width 13.2 % (12.1-15.1); White Blood Count 10.79 10^3/uL (3.29-11.43)
[2025-01-18 17:15] LABS: Bilirubin Urine Negative (Negative); Blood Urine Negative (Negative); Glucose Urine UA Negative (Normal); Ketones Urine Negative (Negative); Leukocyte Esterase Urine Negative (Negative); Nitrate Urine Negative (Negative); Protein Urine Negative (Negative); Urine Appearance Clear (CLEAR); Urine Color Yellow (Yellow); Urobilinogen Urine 0.2 mg/dL (Negative)
[2025-01-18] MEDS: ondansetron 2 mg/ML SDV 2 mL 4 MG IVP (17:16)
[2025-01-18] MEDS: HYDROmorphone 0.5 MG/0.5 ML INJ IVP (17:17)
[2025-01-18 17:20] LABS: Add Urine Microscopic? YES; Bacteria Urine None Seen /hpf; Hyaline Casts Urine 0-4 /lpf; RBC Urine 0-2 /hpf (0-2); Squamous Epithelial Cell Urine 0-5 /hpf (0-5); WBC Urine 0-5 /hpf (0-5)
[2025-01-18 17:35] LABS: Alanine Aminotransferase 18 U/L (0-33); Alkaline Phosphatase 108 U/L (35-105); Anion Gap 16.1 (5-19); Aspartate Amino Transferase 18 U/L (0-32); Blood Urea Nitrogen 15 mg/dL (8-23); Calcium 9.6 mg/dL (8.5-10.5); Carbon Dioxide 27 mmol/L (22-29); Chloride 104 mmol/L (98-107); Creatinine Clr Calc Pharmacy 71.5023; Glucose 117 mg/dL (65-115); Lipase 15 U/L (13-60); Osmolality Calculated 298 mOsm/kg (285-295); Potassium 4.1 mmol/L (3.5-5.1); Sodium 143 mmol/L (136-145); Total Bilirubin 0.2 mg/dL (0.15-1.2)
[2025-01-18] MEDS: iohexol 350 mg/mL 500 mL Btl (per mL) IV (17:46)
[2025-01-18 18:01] VITALS: BP 119/69; PULSE 82; RESP 18; O2SAT 98
[2025-01-18 18:31] VITALS: BP 122/69; O2SAT 98
[2025-01-18 19:00] VITALS: BP 115/67; PULSE 60; RESP 16; O2SAT 98
--- NOTE | 2025-01-18 19:02 | PC.NURSE ---
this nurse assumed care from Fawn REHMAN at 1845.
[2025-01-18] MEDS: dicyclomine 20 mg Tablet PO (19:19)
[2025-01-18 19:28] VITALS: BP 141/70; PULSE 72; RESP 16; O2SAT 95
== END 2025-01-18 19:27 | disposition home or self-care (01) ==
PROVIDERS: Emergency Provider Emergency Medicine; PCP Family Medicine
DX: R10.9 Unspecified abdominal pain (principal); Z87.891 Personal history of nicotine dependence; E78.5 Hyperlipidemia, unspecified
CPT/HCPCS: 36415; 74177; 80053; 81001; 83690; 85025; 93005; 96374; 96375; 99285; J1171; J2405; J9999

== ENCOUNTER → 2025-01-23 15:51 | Outpatient (BNVA) | payer OTHER, MEDICARE, SELFPAY | PROVIDERS: PCP Family Medicine; Visit Provider Family Medicine | DX: R07.9 Chest pain, unspecified (principal) | CPT/HCPCS: 84484 ==

== ENCOUNTER → 2025-02-10 08:25 | Outpatient (BNVA) | payer MEDICARE, OTHER, SELFPAY | PROVIDERS: PCP Family Medicine; Visit Provider Student in an Organized Health Care Education/Training Program | DX: K21.9 Gastro-esophageal reflux disease without esophagitis (principal) | CPT/HCPCS: 99214 ==

== ENCOUNTER 2025-02-25 07:19 | Day surgery (SDC) | payer MEDICARE, OTHER, SELFPAY ==
[2025-02-25 07:35] VITALS: BP 119/75; PULSE 85; RESP 16; TEMP 35; O2SAT 95; BMI 37.4
[2025-02-25] MEDS: sodium chloride 0.9% 1,000 ML 15 ML IV (07:40)
--- NOTE | 2025-02-25 08:45 | ANES.PREANE2 ---
Pre-Anesthetic Assessment Height/Weight: Height 5 ft 1 in Weight 198 lb Temp Pulse Resp BP Pulse Ox O2 Del Method 95 F L 85 16 119/75 95 Room Air 02/25/25 07:35 02/25/25 07:35 02/25/25 07:35 02/25/25 07:35 02/25/25 07:35 02/25/25 07:35 Preop Diagnosis: GERD Operation Date: 02/25/25 08:45 Proposed Procedures p EGD 06152, K21.9(Not Applicable) - Faisal Justice MD Was Beta Chris taken within 24 hours: N/A Was Clonidine taken within 24 hours: N/A Last intake: Intake Last Liquid Date 02/24/25 Last Liquid Time 07:00 Last Solid Date 02/24/25 Last Solid Time 13:00 Social Tobacco and No alcohol Exam alert, oriented x 3 and regular rate & rhythm Airway Submandibular: within normal limits Cervical ROM: within normal limits Mallampati: Class III Comments: Comments: Edentulous Anesthetic Plan ASA status: 3 Anesthesia: MAC Other: No prior issues with anesthesia NPO since yesterday morning History of GERD on omeprazole Patient took a Xanax this morning because she normally gets very nervous prior to procedures COPD, current smoker Labs reviewed 01/18/2025 and acceptable for procedure Plan for MAC anesthesia Medications/Allergies Home Medications ?Medication ?Instructions ?Recorded ?Confirmed ?Last Taken ?Type albuterol sulfate 90 mcg/actuation 2 puff inhalation Q6H PRN 12/26/23 02/25/25 Unknown Rx aerosol inhaler (Ventolin HFA) shortness of breath or wheezing #8.5 grams epinephrine 0.1 mg/0.1 mL 0.1 ml IM ONCE #2 ea 04/04/24 02/20/25 Unknown Rx injection, auto-injector simvastatin 20 mg tablet 20 mg PO DAILY #90 tabs 06/26/24 02/20/25 02/24/25 Rx vits,calcium 21-iron fum 1 tab PO DAILY 07/20/24 02/20/25 02/20/25 History 14 mg iron-folic acid 400 mcg tablet ( Complete) alprazolam 0.5 mg tablet 0.5 mg PO TID #90 tabs 12/09/24 02/20/25 02/25/25 07:00 Rx ondansetron 4 mg disintegrating 4 mg PO Q6H PRN nausea and 01/18/25 02/20/25 Unknown Rx tablet vomiting #14 tabs sucralfate 1 gram tablet (Carafate) 1 g PO QID #120 tabs 01/30/25 02/20/25 02/20/25 Rx omeprazole 20 mg capsule,delayed 20 mg PO BID 02/20/25 02/20/25 02/24/25 History release Allergies Allergy/AdvReac Type Severity Reaction Status Date / Time latex Allergy ALGY-Bliste Verified 02/25/25 07:29 r Penicillins AdvReac Intermediate hives, Verified 02/25/25 07:29 throat swelling Sulfa (Sulfonamide AdvReac Intermediate anaphylaxis Verified 02/25/25 07:29 Antibiotics) tree nut AdvReac Intermediate throat Verified 02/25/25 07:29 swelling Current Medications Generic Name Dose Route Start Last Admin Trade Name Freq PRN Reason Stop Dose Admin Sodium Chloride 1,000 mls @ 15 mls/hr 02/25/25 07:23 02/25/25 07:40 Sodium Chloride 0.9% IV 02/26/25 07:22 15 mls/hr .Q24H PRN Administration COLONOSCOPY FLUIDS PFSH Anesthesia Medical History Smoker Foot fracture, left 2018 broke 4 bones in left foot Ruptured lumbar disc 2011 Ocular migraine Frequent UTI Generalized anxiety disorder Hyperlipidemia Surgical History Hx of colonoscopy Dr Joy History of laparoscopic appendectomy 07/21/24 Dr Justice Hx of excision of mass Dr Joy- 04/23/24 Excision of subcutaneous mass of chest Excision of skin and subcutaneous tissue right groin Excision of skin and subcutaneous tissue left groin Hx of bladder repair surgery 2011, 2011 History of arthroscopic surgery of shoulder 2008, both shoulders History of carpal tunnel release of both wrists 1998 Family History Mother Cancer breast Family/Other Cancer maternal uncle, colon cancer, age 40 Family/Other Cancer Leukemia, paternal aunt Brother Cancer Lung cancer, smoker/asbestos Social History Smoking and tobacco/nicotine status: never used tobacco/nicotine Quit status (tobacco/nicotine): has quit using Former quit date comment: 30-40 pack year history Alcohol intake: never Substance/Drug Use: never 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
--- NOTE | 2025-02-25 08:47 | W.PM.OPSUD ---
Surgery/Procedure H&P Update DATE OF PROCEDURE: February 25, 2025 DATE H&P PERFORMED: 02/10/25 H&P UPDATE INFORMATION: I have reviewed H&P completed within last 30 days, I have examined patient prior to procedure and No changes to prior documentation PREOP DIAGNOSIS: GERD PLANNED PROCEDURE: Operation Date: 02/25/25 08:45 Proposed Procedures p EGD 65642, K21.9(Not Applicable) - Faisal Justice MD
[2025-02-25 08:58] VITALS: BP 113/76; PULSE 70; RESP 20; TEMP 36.1; O2SAT 91
[2025-02-25 09:14] VITALS: BP 116/74; PULSE 73; RESP 18; O2SAT 96
[2025-02-25 09:21] VITALS: BP 117/72; PULSE 68; RESP 18; O2SAT 96
--- NOTE | 2025-02-25 09:25 | ANE.PACU2 ---
Inpatient post-anesthesia follow up: Airway intact: Yes Vital signs: Temperature 97.0 F Pulse Rate 68 Respiratory Rate 18 Blood Pressure 117/72 Pulse Oximetry 96 Oxygen Delivery Me thod Room Air Oxygen Flow Rate Fraction of Inspir ed Oxygen Hydration adequate: Yes Nausea and vomiting: No Pain level: 1 Mental status: Baseline
--- NOTE | 2025-02-25 11:28 | ANES.PREANE2 ---
Pre-Anesthetic Assessment Height/Weight: Height 1.55 m Weight 89.811 kg Temp Pulse Resp BP Pulse Ox O2 Del Method 97.0 F L 68 18 117/72 96 Room Air 02/25/25 08:58 02/25/25 09:21 02/25/25 09:21 02/25/25 09:21 02/25/25 09:21 02/25/25 09:21 Preop Diagnosis: GERD Operation Date: 02/25/25 08:45 Proposed Procedures p EGD 30450, K21.9(Not Applicable) - Faisal Justice MD Was Beta Chris taken within 24 hours: N/A Was Clonidine taken within 24 hours: N/A Last intake: Intake Last Liquid Date 02/24/25 Last Liquid Time 07:00 Last Solid Date 02/24/25 Last Solid Time 13:00 Social Tobacco and No alcohol Exam alert, oriented x 3 and regular rate & rhythm Airway Submandibular: within normal limits Cervical ROM: within normal limits Mallampati: Class III Comments: Comments: Edentulous Anesthetic Plan ASA status: 3 Anesthesia: MAC Other: No prior issues with anesthesia NPO since yesterday morning History of GERD on omeprazole Patient took a Xanax this morning because she normally gets very nervous prior to procedures COPD, current smoker Labs reviewed 01/18/2025 and acceptable for procedure Plan for MAC anesthesia Medications/Allergies Home Medications ?Medication ?Instructions ?Recorded ?Confirmed ?Last Taken ?Type albuterol sulfate 90 mcg/actuation 2 puff inhalation Q6H PRN 12/26/23 02/25/25 Unknown Rx aerosol inhaler (Ventolin HFA) shortness of breath or wheezing #8.5 grams epinephrine 0.1 mg/0.1 mL 0.1 ml IM ONCE #2 ea 04/04/24 02/20/25 Unknown Rx injection, auto-injector simvastatin 20 mg tablet 20 mg PO DAILY #90 tabs 06/26/24 02/20/25 02/24/25 Rx vits,calcium 21-iron fum 1 tab PO DAILY 07/20/24 02/20/25 02/20/25 History 14 mg iron-folic acid 400 mcg tablet ( Complete) alprazolam 0.5 mg tablet 0.5 mg PO TID #90 tabs 12/09/24 02/20/25 02/25/25 07:00 Rx ondansetron 4 mg disintegrating 4 mg PO Q6H PRN nausea and 01/18/25 02/20/25 Unknown Rx tablet vomiting #14 tabs sucralfate 1 gram tablet (Carafate) 1 g PO QID #120 tabs 01/30/25 02/20/25 02/20/25 Rx omeprazole 20 mg capsule,delayed 20 mg PO BID 02/20/25 02/20/25 02/24/25 History release Allergies Allergy/AdvReac Type Severity Reaction Status Date / Time latex Allergy ALGY-Bliste Verified 02/25/25 07:29 r Penicillins AdvReac Intermediate hives, Verified 02/25/25 07:29 throat swelling Sulfa (Sulfonamide AdvReac Intermediate anaphylaxis Verified 02/25/25 07:29 Antibiotics) tree nut AdvReac Intermediate throat Verified 02/25/25 07:29 swelling PFSH Anesthesia Medical History Smoker Foot fracture, left 2018 broke 4 bones in left foot Ruptured lumbar disc 2011 Ocular migraine Frequent UTI Generalized anxiety disorder Hyperlipidemia Surgical History Hx of colonoscopy Dr Joy History of laparoscopic appendectomy 07/21/24 Dr Justice Hx of excision of mass Dr Joy- 04/23/24 Excision of subcutaneous mass of chest Excision of skin and subcutaneous tissue right groin Excision of skin and subcutaneous tissue left groin Hx of bladder repair surgery 2011, 2011 History of arthroscopic surgery of shoulder 2008, both shoulders History of carpal tunnel release of both wrists 1998 Family History Mother Cancer breast Family/Other Cancer maternal uncle, colon cancer, age 40 Family/Other Cancer Leukemia, paternal aunt Brother Cancer Lung cancer, smoker/asbestos Social History Smoking and tobacco/nicotine status: never used tobacco/nicotine Quit status (tobacco/nicotine): has quit using Former quit date comment: 30-40 pack year history Alcohol intake: never Substance/Drug Use: never 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
== END 2025-02-25 09:25 | disposition home or self-care (01) ==
PROVIDERS: PCP Family Medicine; Visit Provider Student in an Organized Health Care Education/Training Program
PROC: 0DJ08ZZ Inspection of Upper Intestinal Tract, Via Natural or Artificial Opening Endoscopic (ICD-10-PCS; principal; 2025-02-25 08:45)
DX: K21.9 Gastro-esophageal reflux disease without esophagitis (principal); J44.9 Chronic obstructive pulmonary disease, unspecified; E78.5 Hyperlipidemia, unspecified; Z88.0 Allergy status to penicillin; Z88.2 Allergy status to sulfonamides; Z91.040 Latex allergy status; Z87.891 Personal history of nicotine dependence; Z79.899 Other long term (current) drug therapy
CPT/HCPCS: 43239; 88305; J2704; J7030; J9999

== ENCOUNTER → 2025-03-10 08:04 | Outpatient (BNVA) | payer MEDICARE, OTHER, SELFPAY | PROVIDERS: PCP Family Medicine; Visit Provider Student in an Organized Health Care Education/Training Program | DX: Z09 Encounter for follow-up examination after completed treatment for conditions other than malignant neoplasm (principal); R03.0 Elevated blood-pressure reading, without diagnosis of hypertension | CPT/HCPCS: 99213 ==

== ENCOUNTER → 2025-03-27 15:25 | Outpatient (BNVA) | payer MEDICARE, OTHER, SELFPAY | PROVIDERS: PCP Family Medicine; Visit Provider Family Medicine | DX: N39.0 Urinary tract infection, site not specified (principal); R31.9 Hematuria, unspecified | CPT/HCPCS: 81000; 87077; 87086; 87184 ==

== ENCOUNTER 2025-04-23 07:27 | Outpatient (CLI) | payer MEDICARE, OTHER, SELFPAY ==
--- NOTE | 2025-04-23 08:00 | NM_ITS ---
WS: [id number] NUCLEAR MEDICINE HIDA SCAN CLINICAL INFORMATION: abd pain TECHNIQUE: Following intravenous administration of 7.8 mCi of technetium 99m mebrofenin, images of the abdomen were obtained over the course of 60 minutes. Next, gallbladder ejection fraction was determined by obtaining preprandial and one-hour postprandial images of the gallbladder following oral ingestion of Ensure. COMPARISON: None. FINDINGS: Normal hepatic uptake at 5 minutes. Normal hepatic excretion. Normal common bile duct and small bowel activity. Hemangioma in the liver better evaluated on the prior CT chest 11/18/2024. Fatty liver. Gallbladder ejection fraction 87% within normal limits. No evidence of chronic cholecystitis. NM/NM hepatobiliary w phar* [id number] IMPRESSION: No evidence of acute or chronic cholecystitis.
== END 2025-04-23 07:28 | disposition home or self-care (01) ==
LOC: RAD 07:29
PROVIDERS: PCP Family Medicine; Visit Provider Family Medicine
DX: R10.9 Unspecified abdominal pain (principal); D18.09 Hemangioma of other sites; K76.0 Fatty (change of) liver, not elsewhere classified
CPT/HCPCS: 78227; A9537

== ENCOUNTER 2025-06-27 10:53 | Outpatient (CLI) | payer MEDICARE, OTHER, SELFPAY ==
[2025-06-27] MEDS: iohexol 350 mg/mL 500 mL Btl (per mL) IV (11:10)
[2025-06-27 11:50] LABS: Blood Urea Nitrogen 17 mg/dL (8-23)
--- NOTE | 2025-06-27 12:00 | CT_ITS ---
WS: [id number] CT chest w con* [id number] HISTORY: f/u on lung nodule TECHNIQUE: Axial imaging performed through the thorax. Coronal and sagittal reformats are submitted. All CT scans at [facility] use at least one of these dose optimization techniques: automated exposure control; mA and/or kV adjustment per patient size (includes targeted exams where dose is matched to clinical indication); or iterative reconstruction. CONTRAST: Omnipaque 350; 100 mL IV. DLP: 386.17 mGy.cm COMPARISON: 11/18/2024 Lungs and central airway: Reidentified is a groundglass attenuation in the posterior superior RIGHT upper lobe. No improvement. Minimal progression of the subsolid consolidation. There is a very tiny 2 mm nodule now noted at the RIGHT apex best seen on the coronal and sagittal planes. Stable 3 mm nodule LEFT upper lobe. 3 mm nodule periphery RIGHT lower lobe, image 34 series 5. Pleura: Normal. No pleural effusion. Heart and pericardium: Normal size heart with no pericardial effusion. Mediastinum and donald: No mediastinum or hilar adenopathy. Vessels: Very mild atherosclerosis aorta. Normal size aorta and pulmonary artery. Chest wall and lower neck: Mild RIGHT thyromegaly extending substernal. Upper abdomen: No adrenal mass. Osseous structures: No destructive process. CT/CT chest w con* [id number] IMPRESSION: 1. Reidentified is a subsolid opacification in the RIGHT upper lobe with minim al progression. There is a new associated 2 mm nodule at the RIGHT apex. Recomm end follow-up chest CT with IV contrast in 12 months. 2. Chronic emphysema. 3. Micronodules LEFT upper lobe and in the RIGHT lower lobe can be reevaluated in 12 months also. 4. No mediastinal or hilar adenopathy.
== END 2025-06-27 10:54 | disposition home or self-care (01) ==
LOC: RAD 10:55
PROVIDERS: PCP Family Medicine; Visit Provider Family Medicine
DX: R91.8 Other nonspecific abnormal finding of lung field (principal); J43.9 Emphysema, unspecified; E04.8 Other specified nontoxic goiter
CPT/HCPCS: 71260; 82565; 84520